=== PATIENT | female | born 2000 | race Caucasian/White ===

== ENCOUNTER 2021-05-10 09:53 | Outpatient (CLI) | payer SELFPAY ==
--- NOTE | ~2021-05-10 | US_ITS ---
EXAMINATION: US OB <= 14 weeks fetus DATE: 05/10/2021 10:52 INDICATION: Supervision of normal first trimester TECHNIQUE: Real-time pelvic transabdominal and transvaginal ultrasound was performed. COMPARISON: None. FINDINGS: The uterus measures 8.3 x 6.3 x 7.0 cm. There is an intrauterine gestational sac. A yolk s ac is identified. heart motion is identified measuring 173 beats per minute (bpm) by M-mode Dop pler. The crown rump length measures 2.0 , which correlates with an estimated gestational age o f 8 weeks and 4 day(s) (+/-) 5 day(s). The left ovary is not visualized however no left adnexal abnormality is seen. The right ovary measure s 3.3 x 2.1 x 2.7 cm. There is normal vascular flow in the right ovary. There is no free fluid in the pelvis. IMPRESSION: 1. Live intrauterine with an estimated gestational age of 8 weeks and 4 day(s) (+/-) 5 day( s) and an estimated delivery date of 12/16/2021. Reviewed, dictated and finalized at location A. IMPRESSION: 1. Live intrauterine with an estimated gestational age of 8 weeks and 4 day(s) (+/-) 5 day(s) and an estimated delivery date of 12/16/2021.
== END 2021-05-10 09:54 | disposition home or self-care (01) ==
LOC: ANHIMG 10:00
PROVIDERS: Visit Provider Physician Assistant
DX: Z34.91 Encounter for supervision of normal pregnancy, unspecified, first trimester (principal); Z3A.08 8 weeks gestation of pregnancy
CPT/HCPCS: 76801

== ENCOUNTER 2021-06-12 19:36 | Emergency (ER) | payer MEDICAID, SELFPAY ==
[2021-06-12 19:48] VITALS: BP 113/67; PULSE 92; RESP 18; TEMP 36.5; O2SAT 100
--- NOTE | 2021-06-12 22:45 | ED.URI ---
HPI - URI/Sore Throat General Chief Complaint: Upper Respiratory Infection Stated Complaint: congestion, difficulty swallowing Time Seen by Provider: 06/12/21 22:22 Source: patient Mode of arrival: ambulatory Limitations: no limitations History of Present Illness HPI Narrative: Patient is a 20-year-old female complaining of her nose being stopped up and unable to breathe through her nose accompanied by runny nose and sore throat that started this morning. Patient denies any chest pain, shortness of breath, abdominal pain, nausea, vomiting, fever or chills. Related Data Allergies Allergy/AdvReac Type Severity Reaction Status Date / Time codeine Allergy Hives Verified 06/12/21 19:51 DIPHENHYDRAMINE HCL Allergy Mild Anaphylaxis Uncoded 06/12/21 19:51 Review of Systems Review of Systems: All systems reviewed & are unremarkable except as noted in HPI and below Constitutional: Constitutional: Reports as per HPI PMFSH Comments Past medical history: None Family history: Negative for hypertension or diabetes Social history: Non-smoker no EtOH or drug use Exam Const: General: healthy appearing, no acute distress and alert Orientation/consciousness: patient oriented x3 HENMT: Head: normal to inspection Other: Erythematous, swollen, boggy nasal turbinates. Clear nasal discharge. Oropharynx slightly erythematous no significant swelling Neck: Neck: normal visual inspection Resp: Effort & Inspection: normal respiratory effort Skin: General skin exam: normal color Rashes: no rashes Neuro: General: patient oriented x3, moves all extremities and no meningeal signs Extrem: General: normal to inspection Psych: Mental Status: mental status grossly normal Course Vital Signs Vital signs: Vital Signs Temperature 36.5 C 06/12/21 19:48 Pulse Rate 92 06/12/21 19:48 Respiratory Rate 18 06/12/21 19:48 Blood Pressure 113/67 06/12/21 19:48 Pulse Oximetry 100 06/12/21 19:48 Temperature 36.5 C 06/12/21 19:48 Pulse Rate 92 06/12/21 19:48 Respiratory Rate 18 06/12/21 19:48 Blood Pressure 113/67 06/12/21 19:48 Pulse Oximetry 100 06/12/21 19:48 Discharge Plan Discharge Clinical Impression: Upper respiratory infection Qualifiers: URI type: unspecified viral URI Qualified Code(s): J06.9 - Acute upper respiratory infection, unspecified Sinusitis Qualifiers: Sinusitis location: unspecified location Chronicity: acute Recurrence: non-recurrent Qualified Code(s): J01.90 - Acute sinusitis, unspecified Patient Disposition: Home, Self-Care Condition: Improved Instructions: Sinusitis (ED), Upper Respiratory Infection (ED) Follow-up/Referrals: PHYSICIAN,VISITOR SERVICES INFORMATION ASSISTANT [Primary Care Provider] - Stand Alone Forms: Work/School Release IP Time of Disposition: 22:49
== END 2021-06-12 23:04 | disposition home or self-care (01) ==
PROVIDERS: Emergency Provider Emergency Medicine
DX: J06.9 Acute upper respiratory infection, unspecified (principal); J01.90 Acute sinusitis, unspecified
CPT/HCPCS: 99281

== ENCOUNTER 2021-07-04 13:14 | Outpatient (RCR) | payer OTHER, SELFPAY ==
--- NOTE | 2021-07-04 13:50 | PC.NURSE ---
1327-'s office called, informed pt came in for DFM at 16 weeks gestation. Dopplered fht's at 157, order received to send pt home.
== END 2021-09-28 20:51 | disposition home or self-care (01) ==
LOC: ANHOBOP 13:14
PROVIDERS: Visit Provider Obstetrics & Gynecology
DX: O36.8390 Maternal care for abnormalities of the fetal heart rate or rhythm, unspecified trimester, not applicable or unspecified (principal); Z3A.00 Weeks of gestation of pregnancy not specified
CPT/HCPCS: 99199; A9270

== ENCOUNTER 2021-07-19 11:25 | Observation (INO) | payer OTHER, SELFPAY ==
[2021-07-19] VITALS (14 sets, daily range): BP systolic 100–133; BP diastolic 64–85; PULSE 95–110; RESP 14–26; TEMP 36–36.3; O2SAT 97–99; BMI 31.3
--- NOTE | ~2021-07-19 | US_ITS ---
EXAMINATION: US OB limited DATE: 07/20/2021 08:39 INDICATION: COVID during second trimester of TECHNIQUE: Real-time ultrasound of the pelvis was performed. The interpreting radiologist was not pre sent for the study. COMPARISON: 05/10/2021 FINDINGS: There is a single living fetus in vertex presentation. The normal placenta is posterior. No evident subchorionic hematoma. heart rate is 145 beats per minute (bpm). The amniotic fluid volume is s ubjectively normal. IMPRESSION: 1. Single living fetus in vertex presentation with heart rate of 145 bpm. 2. Normal posterior placenta and subjectively normal amniotic fluid volume. Reviewed, dictated and finalized at location A. US FRUIT COLORER
--- NOTE | ~2021-07-19 | XR_ITS ---
EXAMINATION: XR chest 1V portable INDICATION: Productive cough TECHNIQUE: Portable AP chest at 1227 hours COMPARISON: None available FINDINGS: There are patchy opacities of the lung bases and perihilar regions. There is no pleural eff usion or pneumothorax. The cardiomediastinal silhouette is normal. IMPRESSION: 1. Patchy bibasilar and bilateral perihilar opacities, likely pneumonia. Reviewed, dictated and finalized at location A. P MACHINE OPERATOR
--- NOTE | 2021-07-19 11:41 | ECG_ITS ---
Measurements Intervals [place] Rate: 96 P: 24 FL: 118 QRS: 42 QRSD: 77 T: 29 QT: 331 QTc: 419 Interpretive Statements SINUS RHYTHM WITH SHORT FL INTERVAL BASELINE ARTIFACT- I, II, III, AVR, AVF BORDERLINE ECG Electronically Signed On 07-19-2021 15:03:47 COMPRESSOR OPERATOR PORTABLE by Marlon Golden D.O.
--- NOTE | 2021-07-19 12:15 | ED.SOB ---
HPI - SOB/Dyspnea General Chief Complaint: Shortness of Breath/Dyspnea Stated Complaint: wheezing, sob Time Seen by Provider: 07/19/21 12:02 Source: RN notes reviewed History of Present Illness HPI Narrative: Patient presents emergency department from home for shortness of breath. Patient states she has had a cough for the past week has been productive of yellow sputum she states that she has been feeling more short of breath over the past 1 week with wheezing noted she states that sometimes her getting a coughing spell so hard that will cause her to vomit at the end of them she also states that she has pain with coughing and deep inspiration in the midsternal chest she denies any fevers or chills abdominal pain diarrhea or any other symptoms states she has not had a Covid vaccination patient is currently 19 weeks she had been being followed by Dr. Patterson but is no longer seeing Dr. Patterson supposed be seeing a new [facility] in [place] but is unsure of name and does not have an appointment made yet she denies any abdominal pain or vaginal bleeding Related Data Home Medications Medication Instructions Recorded Confirmed No Home Medications 07/19/21 07/19/21 Allergies Allergy/AdvReac Type Severity Reaction Status Date / Time codeine Allergy Hives Verified 07/19/21 11:44 DIPHENHYDRAMINE HCL Allergy Mild Anaphylaxis Uncoded 06/12/21 19:51 Review of Systems Review of Systems: Gen.: Denies fevers or chills Eyes: Denies eye pain or visual change ENT: Denies congestion Respiratory: See HPI CV: Reports midsternal chest pain with coughing and deep inspiration GI: Denies abdominal pain nausea, diarrhea. Reports posttussive emesis denies burning, urgency, frequency or hematuria Musculoskeletal: Denies back pain or muscle pain Neuro: Denies numbness, tingling, weakness or focal weakness Skin: Denies rash Except as documented, all other systems reviewed and negative [facility] Past Medical History Medical History (Updated 07/19/21 @ 14:34 by Sriram Moctezuma DO) Patient denies significant medical history Social History Social History (Updated 07/19/21 @ 12:16 by Sriram Moctezuma DO) Smoking status: Current every day smoker Exam Narrative: APPEARANCE: No acute distress, nontoxic, resting in bed EYES: EOMI HEENT: Normocephalic, atraumatic, OMM RESPIRATORY: No respiratory distress wheezing throughout the bilateral lung jesus no rhonchi or rales CARDIOVASCULAR: Regular rate and rhythm without murmurs rubs or gallops. ABDOMINAL: Soft, nontender, nondistended, no rebound or guarding MUSCULOSKELETAl: Moves all extremities. No clubbing, cyanosis or edema. NEURO: Awake and alert. Following commands, speech normal, no focal deficits SKIN:: Warm, dry. No rashes lesions or abrasions PSYCHIATRIC: Normal affect/mood, Course Course Emergency Course: We will records patient with ultrasound in April showing IUP Breathing treatments in ED repeat lung exam shows continued wheezing throughout bilateral lung jesus Called and discussed with DAYSI Hwang for Dr Nunes presentation work-up agrees with admission at this time with consult [facility] Called discussed Dr. Villarreal for [facility] agrees with starting patient on Rocephin and Zithromax request a.m. ultrasound be obtained Discussed with patient and family results of workup and diagnosis. Discussed need for admission. Patient and family understand and agree to current treatment plan Vital Signs Vital signs: Vital Signs Temperature 97.2 F L 07/19/21 11:31 Pulse Rate 98 07/19/21 11:31 Respiratory Rate 16 07/19/21 11:31 Blood Pressure 130/76 07/19/21 11:31 Pulse Oximetry 99 07/19/21 11:31 Temperature 97.2 F L 07/19/21 11:31 Pulse Rate 98 07/19/21 13:19 Respiratory Rate 14 07/19/21 13:19 Blood Pressure 100/85 07/19/21 12:45 Pulse Oximetry 99 07/19/21 12:00 MDM - SOB/Dyspnea Lab Data Result diagrams: 07/19/21 13:14
[2021-07-19] MEDS: IPRATROPIUM BR 0.02% INH SOLN 0.5 MG/2.5 ML VIAL INHALATION ×2 (12:21→13:09)
[2021-07-19] MEDS: ALBUTEROL SULFATE NEB 2.5 MG/0.5 ML INH 5 MG INHALATION ×2 (12:22→13:09)
[2021-07-19] MEDS: predniSONE 20 MG TABLET 60 MG PO (12:35)
[2021-07-19 13:23] LABS: Basophils Absolute Auto 0.1 K/mm3 (0.0-0.1); Basophils Percent Auto 0.5 % (0.2-1.2); Eosinophils Absolute Auto 0.7 K/mm3 (0-0.3); Eosinophils Percent Auto 5.8 % (0-4.4); Hematocrit 37.1 % (37.0-47.0); Hemoglobin 12.9 g/dL (12.0-15.0); Immature Granulocyte Absolute 0.08 K/mm3 (0.00-0.031); Immature Granulocyte Percent A 0.7 % (0-0.5); Lymphocytes Absolute Auto 2.34 K/mm3 (0.9-3.2); Lymphocytes Percent Auto 19.5 % (18.3-44.2); Mean Corpuscular HGB Conc 34.8 g/dl (32-36); Mean Corpuscular Hemoglobin 29.2 pg (26-34); Mean Corpuscular Volume 83.9 fl (80-100); Mean Platelet Volume 8.4 fl (7.4-10.4); Monocytes Absolute Auto 0.6 K/mm3 (0.1-0.6); Monocytes Percent Auto 5.2 % (2.6-8.5); Neutrophils Absolute Auto 8.2 K/mm3 (1.3-6.7); Neutrophils Percent Auto 68.3 % (45.5-73.1); Platelet Count Result 235 k/mm3 (150-375); Red Blood Count 4.42 M/mm3 (4.2-5.4); Red Cell Distribution Width 13.5 % (11.5-14.5)
[2021-07-19 13:35] LABS: Alanine Aminotransferase 71 U/L (4-35); Albumin Level 4.7 g/dL (3.5-5.1); Alkaline Phosphatase 102 U/L (38-126); Anion Gap 11 mmol/L (8-16); Aspartate Amino Transferase 40 U/L (14-36); Bilirubin,Total 0.4 mg/dL (0.2-1.3); Blood Urea Nitrogen 9 mg/dL (7-17); CRP 1.9 mg/dL (<1.0); Calcium 9.6 mg/dL (8.4-10.2); Carbon Dioxide 21 mmol/L (22-30); Chloride 100 mmol/L (98-107); D Dimer 0.43 ug/mL (<0.48); Estimated Glomerular Filt Rate > 60; Glucose 90 mg/dL (65-110); Lactate Dehydrogenase 455 U/L (313-618); Potassium 3.7 mmol/L (3.4-5.0); Sodium 132 mmol/L (137-145)
[2021-07-19 13:44] LABS: Lactic Acid Reflex 0.9 mmol/L (0.7-2.1)
--- NOTE | 2021-07-19 15:59 | ADMGEN ---
This patient, Stephanie Wheatley, was admitted to [facility] Surg Room 313-01 at 1550. Patient/family oriented to hospital policies and general routines including ID bracelet, bed and alarms, visiting hours, pain management, procedures, bathroom and other care routines, personal items, smoking policy, room service/diet, and visiting hours. Information on how to activate the Rapid Response Team has been discussed. Patient/Family are encouraged to report perceived risks to care and to ask questions if they do not understand what they are told or what they should do.
--- NOTE | 2021-07-19 17:30 | PM.IMHP ---
H&P: HPI History of Present Illness Date/Time: 07/19/21 17:30 Chief Complaint: Shortness of breath and cough. Narrative: This is a pleasant 21-year-old female who is approximately 19 weeks with no significant medical history presented to the emergency department earlier today via private vehicle for evaluation of shortness of breath and cough. Nearly 1 month ago she was concerned that she had COVID with decrease in taste and smell as well as sinus congestion and generalized malaise. 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 Approximately 2 weeks thereafter she developed a cough which has been productive of clear but at times green sputum. Over the past 1 week she has felt increasingly worse with chest congestion, wheezing at nighttime, dyspnea on exertion, nausea, and post-tussive emesis. Chest x-ray done today shows patchy bibasilar and bilateral perihilar opacities felt to be related to pneumonia and she is being admitted in this setting. At the time my evaluation she reports feeling a lot better after receiving a nebulizer and p.o. prednisone in the emergency department. She is not been vaccinated for COVID. She works at a local [email or web address] and is exposed to many people over the course of her day however she is not certain that she has had any COVID contacts. Review of Systems Review of Systems: Twelve systems were reviewed. No fever, chills, or sweats. No significant headache. She denies chest and pleuritic pain. No concerns for aspiration. No history of asthma. She denies edema. No diarrhea. No history of venous thromboembolism. Except as documented, all other systems were reviewed and are negative. [facility] Past Medical History Medical History (Updated 07/19/21 @ 23:02 by Eri Palm PA-C) Anxiety Attention deficit hyperactivity disorder Depression Gastroesophageal reflux disease Patient denies significant medical history Surgical History Surgical History (Updated 07/19/21 @ 23:02 by Eri Palm PA-C) No history of previous surgery Family History Family History Grandparent Diabetes mellitus Mother Bronchitis Social History Social History (Updated 07/19/21 @ 23:03 by rEi Palm PA-C) Social History: Surrogate decision maker: Hannah Wheatley, mother. Code status: Full code. Years smoked: 5 Smoking status: Current every day smoker Tobacco type: e-cigarettes/vaping Alcohol intake: never Substance use: never Substance use type: does not use Additional living arrangements comments: Currently living with her boyfriend in [place]. Additional occupation/education comments: Works at a [employer] care concerns: No Meds Home Medications and Allergies Home Medications Medication Instructions Recorded Confirmed Type folic acid 2 mg PO BID 07/19/21 07/19/21 History no.144-folic acid 2 tablet PO DAILY 07/19/21 07/19/21 History [] progesterone micronized 200 mg PO BID 07/19/21 07/19/21 History Allergies Allergy/AdvReac Type Severity Reaction Status Date / Time diphenhydramine Allergy Mild Anaphylaxis Verified 07/19/21 18:37 codeine Allergy Hives Verified 07/19/21 11:44 Vital Signs Vital Signs - 24 hr 07/19/21 11:31 07/19/21 11:45 07/19/21 12:00 Temperature 97.2 F L Pulse Rate 98 101 H 98 Respiratory Rate 16 16 17 Blood Pressure 130/76 112/78 117/76 Pulse Oximetry 99 98 99 07/19/21 12:22 07/19/21 12:28 07/19/21 12:45 Temperature Pulse Rate 101 H 102 H 106 H Respiratory Rate 20 20 19 Blood Pressure 100/85 Pulse Oximetry 07/19/21 13:09 07/19/21 13:19 Temperature Pulse Rate 95 98 Respiratory Rate 15 14 Blood Pressure Pulse Oximetry Exam Narrative: General: Well-developed female sitting up in bed no distress. S
--- NOTE | 2021-07-19 18:00 | WPDCN ---
Assessment and Plan Assessment and plan (1) Community acquired pneumonia: Code(s): J18.9 - Pneumonia, unspecified organism Status: Acute Assessment and Plan: Management per hospitalist (2) : Code(s): Z34.90 - Encounter for supervision of normal , unspecified, unspecified trimester Status: Acute Assessment and Plan: + heartbeat via doppler today. Check ultrasound tomorrow since most recent was around 8 weeks per patient report. OB available for any obstetric questions HPI Data of Consult Date/Time: 07/19/21 18:00 Requesting Physician: Wayne Nunes MD Primary Care Provider: ASSEMBLY LEADER PHYSICIAN Consult Narrative Narrative: Stephanie Wheatley is a 21 year old female who is 19+ weeks who came in for respiratory complaints and is admitted for pneumonia. No obstetric complaints or known problems this PMFSH Past Medical History Medical History (Updated 07/19/21 @ 14:34 by Sriram Moctezuma DO) Patient denies significant medical history Family History Family History (Updated 07/19/21 @ 16:02 by Nan Trevizo RN) Grandparent Diabetes mellitus Mother Bronchitis Social History Social History (Updated 07/19/21 @ 12:16 by Sriram Moctezuma DO) Years smoked: 5 Smoking status: Current every day smoker Tobacco type: e-cigarettes/vaping Alcohol intake: never Substance use: never Substance use type: does not use Spiritual care concerns: No Meds Home Medications and Allergies Home Medications Medication Instructions Recorded Confirmed Type folic acid 2 mg PO BID 07/19/21 07/19/21 History no.144-folic acid 2 tablet PO DAILY 07/19/21 07/19/21 History [] progesterone micronized 200 mg PO BID 07/19/21 07/19/21 History Allergies Allergy/AdvReac Type Severity Reaction Status Date / Time codeine Allergy Hives Verified 07/19/21 11:44 DIPHENHYDRAMINE HCL Allergy Mild Anaphylaxis Uncoded 06/12/21 19:51 Vital Signs Vital Signs - 24 hr 07/19/21 11:31 07/19/21 11:45 07/19/21 12:00 Temperature 36.2 C L Pulse Rate 98 101 H 98 Respiratory Rate 16 16 17 Blood Pressure 130/76 112/78 117/76 Pulse Oximetry 99 98 99 07/19/21 12:22 07/19/21 12:28 07/19/21 12:45 Temperature Pulse Rate 101 H 102 H 106 H Respiratory Rate 20 20 19 Blood Pressure 100/85 Pulse Oximetry 07/19/21 13:09 07/19/21 13:19 07/19/21 14:15 Temperature Pulse Rate 95 98 107 H Respiratory Rate 15 14 26 H Blood Pressure 110/77 Pulse Oximetry 07/19/21 14:30 07/19/21 15:35 07/19/21 17:10 Temperature Pulse Rate 106 H 110 H Respiratory Rate 15 20 Blood Pressure 107/65 108/72 Pulse Oximetry 97 97 Results Labs CBC & Chem 7: 07/19/21 13:14 07/19/21 13:14 Labs: Short CBC 07/19/21 Range/Units 13:14 WBC 12.0 H (4.5-10.0) K/mm3 Hgb 12.9 (12.0-15.0) g/dL Hct 37.1 (37.0-47.0) % Plt Count 235 (150-375) k/mm3 [facility] 07/19/21 13:14 Sodium 132 L Potassium 3.7 Chloride 100 Carbon Dioxide 21 L BUN 9 Creatinine 0.50 L Glucose 90 Calcium 9.6 Liver Function 07/19/21 Range/Units 13:14 Total Bilirubin 0.4 (0.2-1.3) mg/dL AST 40 H (14-36) U/L ALT 71 H (4-35) U/L Alkaline Phosphatase 102 (38-126) U/L Albumin 4.7 (3.5-5.1) g/dL
[2021-07-20] VITALS: BP 102/50; PULSE 87; RESP 16; TEMP 36.1; O2SAT 96
[2021-07-20 04:00] VITALS: BP 103/58; PULSE 80; RESP 18; TEMP 36.1; O2SAT 98
[2021-07-20 07:36] LABS: Basophils Percent Auto 0.3 % (0.2-1.2); Eosinophils Absolute Auto 0.1 K/mm3 (0-0.3); Eosinophils Percent Auto 1.1 % (0-4.4); Hematocrit 29.3 % (37.0-47.0); Hemoglobin 10.1 g/dL (12.0-15.0); Immature Granulocyte Absolute 0.13 K/mm3 (0.00-0.031); Lymphocytes Absolute Auto 2.42 K/mm3 (0.9-3.2); Lymphocytes Percent Auto 19.1 % (18.3-44.2); Mean Corpuscular HGB Conc 34.5 g/dl (32-36); Mean Corpuscular Hemoglobin 28.5 pg (26-34); Mean Corpuscular Volume 82.8 fl (80-100); Mean Platelet Volume 8.4 fl (7.4-10.4); Monocytes Absolute Auto 0.7 K/mm3 (0.1-0.6); Monocytes Percent Auto 5.1 % (2.6-8.5); Neutrophils Absolute Auto 9.3 K/mm3 (1.3-6.7); Neutrophils Percent Auto 73.4 % (45.5-73.1); Platelet Count Result 221 k/mm3 (150-375); Red Blood Count 3.54 M/mm3 (4.2-5.4); Red Cell Distribution Width 13.5 % (11.5-14.5); White Blood Count 12.7 K/mm3 (4.5-10.0)
[2021-07-20 07:50] LABS: Alanine Aminotransferase 47 U/L (4-35); Albumin Level 3.8 g/dL (3.5-5.1); Alkaline Phosphatase 79 U/L (38-126); Anion Gap 7 mmol/L (8-16); Aspartate Amino Transferase 30 U/L (14-36); Bilirubin,Total 0.3 mg/dL (0.2-1.3); Blood Urea Nitrogen 8 mg/dL (7-17); CRP 2.9 mg/dL (<1.0); Calcium 8.9 mg/dL (8.4-10.2); Carbon Dioxide 20 mmol/L (22-30); Chloride 105 mmol/L (98-107); Estimated Glomerular Filt Rate > 60; Glucose 85 mg/dL (65-110); Lactate Dehydrogenase 332 U/L (313-618); Magnesium 1.8 mg/dL (1.6-2.3); Potassium 3.6 mmol/L (3.4-5.0); Sodium 132 mmol/L (137-145)
[2021-07-20 08:00] VITALS: BP 116/62; PULSE 92; RESP 18; TEMP 36.6; O2SAT 100; O2SAT 97
--- NOTE | 2021-07-20 08:05 | PM.IMPN ---
Subjective Date/time seen: 07/20/21 08:05 Objective Data Vital Signs Vital Signs: Vital Signs - 24 hr 07/19/21 11:31 07/19/21 11:45 07/19/21 12:00 Temperature 97.2 F L Pulse Rate 98 101 H 98 Respiratory Rate 16 16 17 Blood Pressure 130/76 112/78 117/76 Pulse Oximetry 99 98 99 07/19/21 12:22 07/19/21 12:28 07/19/21 12:45 Temperature Pulse Rate 101 H 102 H 106 H Respiratory Rate 20 20 19 Blood Pressure 100/85 Pulse Oximetry 07/19/21 13:09 07/19/21 13:19 07/19/21 14:15 Temperature Pulse Rate 95 98 107 H Respiratory Rate 15 14 26 H Blood Pressure 110/77 Pulse Oximetry 07/19/21 14:30 07/19/21 15:35 07/19/21 16:00 Temperature 97.4 F L Pulse Rate 106 H 110 H 109 H Respiratory Rate 15 20 16 Blood Pressure 107/65 108/72 133/76 Pulse Oximetry 97 97 07/19/21 17:10 07/19/21 20:00 07/20/21 00:00 Temperature 96.8 F L 97.0 F L Pulse Rate 107 H 87 Respiratory Rate 18 16 Blood Pressure 115/64 102/50 L Pulse Oximetry 97 97 96 07/20/21 04:00 Temperature 97.0 F L Pulse Rate 80 Respiratory Rate 18 Blood Pressure 103/58 L Pulse Oximetry 98 Intake/Output Intake/Output: Intake & Output 07/17/21 07/18/21 07/19/21 07/20/21 23:59 23:59 23:59 23:59 Intake Total 640 Balance 640 Meds/Results Medications: Active Medications Generic Name Dose Route Start Last Admin Trade Name Freq PRN Reason Stop Dose Admin Albuterol 2 puff 07/19/21 23:07 Albuterol Sulfate (*Sp) Aerosol 1 Puff INHALATION QIDRT PRN Shortness Of Breath Folic Acid 2 mg 07/20/21 09:00 Folic Acid 1 Mg Tablet PO BID [facility] Ceftriaxone Sodium/Dextrose 1 gm in 50 mls @ 100 mls/hr 07/20/21 14:00 Rocephin 1 Gm/D5w 50 Ml IVPB Q24H [facility] Azithromycin 500 mg in 250 mls @ 250 mls/hr 07/19/21 18:00 07/19/21 21:51 Zithromax IVPB Infused Q24H [facility] Infusion Miscellaneous Information 0 each 07/20/21 00:01 Progesterone Is Nonformulary - Can Patient Use From Home? XX 08/19/21 00:00 CLARIFY [facility] Non-Formulary Medication 200 mg 07/20/21 09:00 Progesterone Micronized PO 08/19/21 08:59 BID [facility] Vit/Calcium/Iron/Folic Ac 2 tab 07/20/21 09:00 Multivit/Min/Pren/Fol Ac/Iron Tablet PO DAILY [facility] Radiology Results: ITS Impressions Chest X-Ray 07/19/21 12:45 IMPRESSION: 1. Patchy bibasilar and bilateral perihilar opacities, likely pneumonia. Labs Labs: Laboratory Results - last 24 hr 07/19/21 07/19/21 07/19/21 13:14 13:14 13:14 WBC 12.0 H RBC 4.42 Hgb 12.9 Hct 37.1 MCV 83.9 MCH 29.2 MCHC 34.8 RDW 13.5 Plt Count 235 MPV 8.4 Immature Gran % (Auto) 0.7 H Neut % (Auto) 68.3 Lymph % (Auto) 19.5 Cassia % (Auto) 5.2 Eos % (Auto) 5.8 H Baso % (Auto) 0.5 Lymph # (Auto) 2.34 Cassia # (Auto) 0.6 Eos # (Auto) 0.7 H Baso # (Auto) 0.1 Abs Immat Gran (auto) 0.08 H Absolute Neuts (auto) 8.2 H Absolute Nucleated RBC 0.0 Nucleated RBC % 0.0 D-Dimer 0.43 Sodium 132 L Potassium 3.7 Chloride 100 Carbon Dioxide 21 L Anion Gap 11 BUN 9 Creatinine 0.50 L Estim Creat Clear Calc Not Reportable Estimated GFR > 60 Glucose 90 Lactic Acid Calcium 9.6 Magnesium Total Bilirubin 0.4 AST 40 H ALT 71 H Alkaline Phosphatase 102 Lactate Dehydrogenase 455 C-Reactive Protein 1.9 H Total Protein 8.0 Albumin 4.7 07/19/21 07/20/21 07/20/21 13:14 07:29 07:29 WBC 12.7 H RBC 3.54 L Hgb 10.1 L Hct 29.3 L MCV 82.8 MCH 28.5 MCHC 34.5 RDW 13.5 Plt Count 221 MPV 8.4 Immature Gran % (Auto) 1.0 H Neut % (Auto) 73.4 H Lymph % (Auto) 19.1 Cassia % (Auto) 5.1 Eos % (Auto) 1.1 Baso % (Auto) 0.3 Lymph # (Auto) 2.42 Cassia # (Auto) 0.7 H Eos # (Auto) 0.1 Baso # (Auto) 0.0 Abs Immat Gran (auto) 0.13 H Absolute Neuts (auto) 9.3 H Ab
[2021-07-20] MEDS: MULTIVIT/MIN/PREN/FOL AC/IRON TABLET 2 TAB PO (09:48)
[2021-07-20] MEDS: FOLIC ACID 1 MG TABLET 2 MG PO (09:48)
[2021-07-20] MEDS: ALBUTEROL SULFATE (*SP) AEROSOL 1 PUFF 2 PUFF INHALATION (09:55)
[2021-07-20 11:49] VITALS: BP 112/46; PULSE 99; RESP 20; TEMP 36.6; O2SAT 100
[2021-07-20 16:00] VITALS: BP 98/62; PULSE 98; RESP 18; TEMP 35.9; O2SAT 99
[2021-07-20 17:10] LABS: SARS-CoV-2 RNA PCR Negative
--- NOTE | 2021-07-20 17:43 | PM.DS ---
DS: Admitting Diagnosis Discharge Date 07/20/2021 Admitting Diagnosis Shortness of breath DS: Discharge Diagnosis Discharge Diagnosis (1) Community acquired pneumonia: Code(s): J18.9 - Pneumonia, unspecified organism Status: Acute Assessment and Plan: CXR notes patchy opacities of the lung bases and perihilar regions. Leukocytosis 12.1. BCX with no growth for 24 hours and patient endorses feeling much better with better breathing. Denies hx of asthma. Ceftriaxone and azithromycin started in ED. -Amoxicillin 875 BID x 5 and azithromycin 500 mg daily x 3 -Albuterol inhaler for PRN use (2) Suspected 2019-nCoV infection: Code(s): Z20.822 - Contact with and (suspected) exposure to COVID-19 Status: Acute Assessment and Plan: Given symptoms and appearance of CXR patient tested for COVID 19. COVID 19 PCR was negative. (3) : Code(s): Z34.90 - Encounter for supervision of normal , unspecified, unspecified trimester Status: Acute Assessment and Plan: 19 weeks on progesterone. US single live fetus vertex. (4) Acute bronchospasm: Code(s): J98.01 - Acute bronchospasm Status: Acute Assessment and Plan: Hx of brochitis in the past and denies hx of asthma. Likely due to penumonia. -albuterol 2 puffs q4h as needed (5) Leukocytosis: Code(s): D72.829 - Elevated white blood cell count, unspecified Status: Acute Assessment and Plan: Remained at 12 during admission. Liley due to pneumonia noted on CXR. -Amoxicillin 875 mg BID x 5 days and azithromycin 500 mg daily x 3 days DS: Summary Hospital Course Hospital Course: Patient presented to the ED with shortness of breath. CXR showed pneumonia. Patient started on antibiotics in the ED. Patient was never febrile. OB was consulted and ordered an OB ultrasound. Ultrasound showed single live born fetus. Patient was feeling much better the next day. Blood cultures showed no growth. COVID 19 PCR was negative. The patient was discharged with amoxicillin, azithromycin and albuterol inhaler for her brochospasms. Time Spent with Patient Time attestation: Total time spent providing and/or coordinating discharge services: 30 Exam Narrative: GENERAL: NAD, cooperative HEENT: Normocephalic, atraumatic, anicteric NECK: Supple CV: Normal S1, S2, RRR, No MRG RESP: CTAB, Normal work of breathing. Abdomen: Soft, non-tender, non-distended, +BS, gravid EXTREMITIES: Warm and well perfused, no clubbing, cyanosis. SKIN: warm, dry and intact. DS: Data Data Completed and Pending Labs on day of discharge: Labs from last 24 hours 07/20/21 07/20/21 07/20/21 07:29 07:29 07:29 WBC 12.7 H RBC 3.54 L Hgb 10.1 L Hct 29.3 L MCV 82.8 MCH 28.5 MCHC 34.5 RDW 13.5 Plt Count 221 MPV 8.4 Immature Gran % (Auto) 1.0 H Neut % (Auto) 73.4 H Lymph % (Auto) 19.1 [place] % (Auto) 5.1 Eos % (Auto) 1.1 Baso % (Auto) 0.3 Lymph # (Auto) 2.42 [place] # (Auto) 0.7 H Eos # (Auto) 0.1 Baso # (Auto) 0.0 Abs Immat Gran (auto) 0.13 H Absolute Neuts (auto) 9.3 H Absolute Nucleated RBC 0.0 Nucleated RBC % 0.0 Sodium 132 L Potassium 3.6 Chloride 105 Carbon Dioxide 20 L Anion Gap 7 L BUN 8 Creatinine 0.40 L Estim Creat Clear Calc Not Reportable Estimated GFR > 60 Glucose 85 Calcium 8.9 Magnesium 1.8 Ferritin 36.20 Total Bilirubin 0.3 AST 30 ALT 47 H Alkaline Phosphatase 79 Lactate Dehydrogenase 332 C-Reactive Protein 2.9 H Total Protein 7.0 Albumin 3.8 SARS-CoV-2 RNA (RT-PCR) 07/19/21 13:26 WBC RBC Hgb Hct MCV MCH MCHC RDW Plt Count MPV Immature Gran % (Auto) Neut % (Auto) Lymph % (Auto) [place] % (Auto) Eos % (Auto) Baso % (Auto) Lymph # (Auto) [place] # (Auto) Eos # (Auto) Baso # (Auto) Abs Immat Gran (auto)
== END 2021-07-20 20:25 | disposition home or self-care (01) ==
LOC: ANHED 14:34 → ANH3MEDSUR 17:06
PROVIDERS: Physician Assistant; Admitting Provider Internal Medicine; Emergency Provider Emergency Medicine; Visit Provider Family Medicine
DX: O99.512 Diseases of the respiratory system complicating pregnancy, second trimester (principal); J18.9 Pneumonia, unspecified organism; J98.01 Acute bronchospasm; F17.210 Nicotine dependence, cigarettes, uncomplicated; D72.829 Elevated white blood cell count, unspecified; R06.02 Shortness of breath; Z3A.19 19 weeks gestation of pregnancy; Z20.822 Contact with and (suspected) exposure to COVID-19
CPT/HCPCS: 36415; 71045; 76815; 80053; 82728; 83605; 83615; 83735; 85025; 85380; 86140; 87040; 93005; 94640; 96365; 96366; 96367; 99285; A9270; C9803; G0378; G0379; J0456; J0696; J7512; U0003; U0005

== ENCOUNTER 2021-07-23 13:48 | Outpatient (CLI) | payer OTHER, SELFPAY ==
--- NOTE | ~2021-07-23 | US_ITS ---
EXAMINATION: US OB follow up EXAM DATE: 07/23/2021 15:05 INDICATION: Routine care. 2nd trimester. TECHNIQUE: Pelvic obstetrical transabdominal sonogram was performed by a technologist. There are mu ltiple grayscale and Doppler images available for interpretation. Comparison is made to prior examina tion from 07/20/2021. FINDINGS: There is a single fetus identified in breech presentation with a heart rate of 146 beats pe r minute. The placenta is located in the posterior position. There is no sonographic evidence of ret roplacental hemorrhage identified. There is subjectively expected amount of amniotic fluid. BIOMETRIC DATA: Biparietal diameter (BPD): 4.6 cm ----------------> 19 weeks 5 days. Head circumference (HC): 17.1 cm ----------------> 19 weeks 5 days. Abdominal circumference (AC): 14.8 cm ----------> 20 weeks 1 day. Femur length (FL): 2.7 cm --------------------------> 18 weeks 2 days. These measurements are concordant. HC/AC ratio is 1.15 (The 5th -- 95th percentile range is 1.08-1.26. Estimated weight is 284 g +/- 43 g. This is the 55th percentile when the currently reported cl inical gestation age 19 weeks 1 day, clinical estimated date of delivery (ELLA-OPE) 12/16 is used. Feta l estimated gestational age based on measurements from this exam is 19 weeks 3 days, with an estimate d date of delivery (ELLA-AUA) 12/14. IMPRESSION: 1. Single fetus in breech presentation with heart rate 146 beats per minute. 2. Estimated weight of 284 grams, 55th percentile using the currently reported clinical gestat ion age of 19 weeks 1 day, ELLA(OPE) 12/16. Reviewed, dictated and finalized at location [facility]. [facility] IMPRESSION: 1. Single fetus in breech presentation with heart rate 146 beats per minute. 2. Estimated weight of 284 grams, 55th percentile using the currently re ported clinical gestation age of 19 weeks 1 day, ELLA(OPE) 12/16.
== END 2021-07-23 13:49 | disposition home or self-care (01) ==
LOC: ANHIMG 13:56
PROVIDERS: PCP Obstetrics & Gynecology; Visit Provider Obstetrics & Gynecology
DX: Z34.92 Encounter for supervision of normal pregnancy, unspecified, second trimester (principal); Z3A.19 19 weeks gestation of pregnancy
CPT/HCPCS: 76816

== ENCOUNTER 2021-10-21 15:55 | Observation (INO) | payer OTHER, SELFPAY ==
--- NOTE | 2021-10-21 16:27 | OBADM ---
This patient, Stephanie Wheatley, admitted to the OB room OB Post 116 for observation. Patient/family oriented to hospital policies and general routines including ID bracelet, bed and alarms, visiting hours, pain management, procedures, bathroom and other care routines, personal items, smoking policy, room service/diet, and visiting hours. Patient/Family are encouraged to report perceived risks to care and to ask questions if they do not understand what they are told or what they should do.
[2021-10-21 16:31] VITALS: BP 99/69; PULSE 102
[2021-10-21 16:45] VITALS: BP 107/58; PULSE 96
[2021-10-21 17:13] LABS: Add Urine Microscopic? YES; Appearance Urine Cloudy (Clear); Bilirubin Urine Negative (Negative); Blood Urine Negative (Negative); Color Urine Yellow (Yellow); Glucose Urine UA Negative (Negative); Ketones Urine Negative (Negative); Leukocyte Esterase Ur 1+ LEU/UL (NEGATIVE); Mucus Urine Rare /lpf; Nitrate Urine Negative (Negative); Protein Urine Negative (Negative); RBC Urine 0-2 /hpf (0-2); Specific Grav Ur 1.014 (1.001-1.035); Squamous Epithelial Cell Urine Moderate /hpf (Few); Urobilinogen Urine Negative mg/dL (<2.0)
--- NOTE | 2021-10-21 17:26 | PC.NURSE ---
Dr Chavira notified of adm c/o, reassuring fht, contractions x1, negative ROM plus and UA results. Ok to dc home.
--- NOTE | 2021-10-29 07:33 | PM.OBTRLD ---
OB - Triage/Final Diagnosis Visit Information Reason for evaluation: other (Abdominal pain) Comments/Additional reasons for admission: I have assessed the risk for this patient, Stephanie Wheatley, and determined that she would benefit from observation care. Evaluation Laboratory results: Laboratory Tests 10/21/21 16:59 Urine Color Yellow Urine Appearance Cloudy H Urine pH 6.0 Ur Specific [place] 1.014 Urine Protein Negative Urine Glucose (UA) Negative Urine Ketones Negative Ur Blood (Man) Negative Urine Nitrate Negative Urine Bilirubin Negative Urine Urobilinogen Negative Ur Leukocyte Esterase 1+ H Urine RBC 0-2 Urine WBC 4-6 H Ur Squamous Epith Cells Moderate H Urine Mucus Rare
== END 2021-10-21 17:48 | disposition home or self-care (01) ==
PROVIDERS: Admitting Provider Obstetrics & Gynecology Gynecology; Visit Provider Obstetrics & Gynecology Gynecology
DX: O26.893 Other specified pregnancy related conditions, third trimester (principal); R10.9 Unspecified abdominal pain; Z3A.32 32 weeks gestation of pregnancy
CPT/HCPCS: 81001; 84112; 87086; 87088; G0378; G0379

== ENCOUNTER 2025-06-23 13:22 | Emergency (ER) | payer SELFPAY ==
--- NOTE | ~2025-06-23 | US_ITS ---
TRANSABDOMINAL/TRANSVAGINAL OBSTETRIC SONOGRAM INDICATION: Ectopic COMPARISON: None. TECHNIQUE: Transabdominal and transvaginal ultrasound of the pelvis was performed. FINDINGS: The uterus measures 8 x 3.6 x 4.7 centimeters. Gestational sac seen. This may be due to early in however ectopic cannot be entirely excluded. The right ovary measures 3.9 x 2.2 x 1.8 cm. The left ovary measures 3.5 x 1.6 x 3 cm. The ovaries are normal in appearance. No adnexal masses are seen. No pelvic fluid or mass is seen. IMPRESSION: No intrauterine identified. Correlation with beta-hCG and follow-up with vessel scrapper helper is recommended. Reviewed, dictated and finalized at location S. IMPRESSION: No intrauterine identified. Correlation with beta-hCG and follow-up w [facility] vessel scrapper helper is recommended.
[2025-06-23 13:34] VITALS: BP 115/68; PULSE 92; RESP 18; TEMP 36.6; O2SAT 100
--- OUTSIDE RECORDS SUMMARY | 2025-06-23 14:04 | XMS_ITS | Clinical Summary ---
Author Organization [facility] [place] [address] [place] [address] Care Team Providers Care Power Lineworker Name Role Phone Marie Villalba MD Primary Care Provide r Allergies Active Allergy Reactions Criticality Noted Date Comments Diphenhydramine Swelling Medium 01/20/2014 Anaphylaxis Hydrocodone Hives Medium 01/19/2017 Medications albuterol HFA (PROVENTIL HFA,VENTOLIN HFA,PROAIR HFA) 90 mcg/actuation inhaler 2-4 PUFFS NEEDED (4-6HR) 07/02/2023 Active Active Problems Problem Noted Date Diagnosed Date Moderate persistent asthma without complication 06/12/2023 Medical History Medical History Date Comments Anxiety Family History Medical History Relation Name Comments Cancer Mother Relation Name Status Comments Mother Social History Tobacco Use Types Packs/Day Years Used Date Smoking Tobacco: Every Day Vaping Tobacco Cessation:Ready to Q uit: Not Asked; Counseling Given: Not Answered Comments:Patient states she has slowed down. Personal Safety Answer Date Recorded Getting School Help Needed Not on file 08/29 Comments Unknown Sex and Gender Information Value Date Recorded Sex Assigned at Not on file Legal Sex Female 10:45 AM CDT Gender Identity Not on file Sexual Orientation Not on file Obstetrics History Last Filed Vital Signs Vital Sign Reading Time Taken Comments Blood Pressure 114/72 09/01/2023 11:23 AM WALL COVERING CONTRACTOR Pulse 96 09/01/2023 11:23 AM WALL COVERING CONTRACTOR Temperature - - Respiratory Rate 18 09/01/2023 11:23 AM WALL COVERING CONTRACTOR Oxygen Saturation 98% 09/01/2023 11:23 AM WALL COVERING CONTRACTOR Inhaled Oxygen Concentration - - Weight 76.2 kg (168 lb) 09/01/2023 11:23 AM WALL COVERING CONTRACTOR Height 149.9 cm (4' 11) 09/01/2023 11:23 AM WALL COVERING CONTRACTOR Body Mass Index 33.93 09/01/2023 11:23 AM WALL COVERING CONTRACTOR Plan of Treatment Health Maintenance Due Date Last Done Comments Cervical Cancer Screening 1999 Depression Screening 1999 Hepatitis C Screening 1999 Regular Well Visit/Exam 18-64 2017 Influenza Vaccine (#1) 2025 , 08/22/2021, 06/15/2018, Additional history exists DTaP/Tdap/Td Vaccine (8 - Td or Tdap) 09/18/2031 09/18/2021, 12/11/2010, 04/23/2004, Additional history exists Hepatitis B Screening Completed 10/15/2000 , 04/09/2000, 01/29/2000 Varicella Vaccines Completed 12/11/2010, 07/14/2000 HPV Vaccines Completed 12/19/2011, 03/26, 12/11/2010 Pneumococcal vaccine <65 Completed 023, 07/14/2000, 02/28/2000, Additional history exists Insurance [facility] [employer] [place]TER [place] Member Subscriber Plan / Payer (Ef fective 2021-Present) Name:Sylwia Wheatley Relation to Subscriber:Self Name:Sylwia Wheatley Payer ID:[id number] (NAIC) Group ID:Not on file Type:MEDICAID RISK OTHER Address: [facility] [id number] [id number] Care Teams Power Lineworker Relationship Specialty Start Date End Date Marie Villalba MD [address] [address] [place] [address] PCP - General Family Medicine 08/29/23
--- OUTSIDE RECORDS SUMMARY | 2025-06-23 14:04 | XMS_ITS | Clinical Summary ---
Author Organization [facility] Address [address] [place] [address] Care Team Providers Care Plaque Maker Name Role Phone Shasha Freeman MD Primary Care Provider [phone] [facility],non-owned Affiliates and Associated Physician Practices is amultiple site organization consisting of ambulatory clinics and hospital sitesin [place], [place], [place] and [place]. This disclosure is being madepursuant to the Care Everywhere program and may not contain all information available regarding this patient. Last updated 18.[facility] Allergies Active Allergy Reactions Criticality Noted Date Comments Diphenhydramine 01/20/2014 Anaphylaxis Hydrocodone 01/19/2017 Medications * Be aware that medications may not be up to date on this document. Alwaysverify current medications with the patient. 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 Swelling of eye, left 01/20/2014 Assessment & Plan (01/22/2014 10:53 AM CDT): Assessment: 13 year old female with no significant PMH presenting with 10 day history of headaches and 7 day history of increased eye swelling which is progressive. CT at OSH was unremarkable and pain has been managed at home with Ibuprofen. Upon presentation to ER, MRI shows increased enhancement of several extraocular muscles bilaterally with left greater than right. Ddx includes possible myositic orbital pseudotumor given ocular muscle invovlement and pain. Thyroid ophthalmopathy can involve the extraocular muscles as well, but thyroid studies WNL. Sarcoidosis can involve orbital structures, but CXR was clear for any hilar lymphadenopathy and serum MARIA M low. Orbital cellulitis can show proptosis and erythema with swelling as well but less likely infectious etiology, especially given the lack of sinus disease. Leukemia or lymphoma can show bilateral occular involvement yet CBC is unremarkable and CXR clear for gross lymphadenopathy. 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 Will continue to monitor improvement on steroids before considering dispo. Appreciate recs regarding duration of treatment and criteria for dispo. Already has f/u next 01/26 at 3PM scheduled at [facility] with Dr. Sotomayor. Assessment & Plan (01/21/2014 5:34 PM CDT): Assessment: 13 year old female with no significant PMH presenting with 10 day history of headaches and 7 day history of increased eye swelling which is progressive. CT at OSH was unremarkable and pain has been managed at home with Ibuprofen. Upon presentation to ER, MRI shows increased enhancement of several extraocular muscles bilaterally with left greater than right. Ddx includes possible myositic orbital pseudotumor given ocular muscle invovlement and pain. Thyroid ophthalmopathy can involve the extraocular muscles as well, but thyroid studies WNL. Sarcoidosis can involve orbital structures, but CXR was clear for any hilar lymphadenopathy and serum MARIA M pending. Orbital cellulitis can show proptosis and erythema with swelling as well but less likely infectious etiology, especially given the lack of sinus disease. Leukemia or lymphoma can show bilateral occular involvement yet CBC is unremarkable and CXR clear for gross lymphadenopathy. 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 Will continue to monitor improvement on steroids before considering dispo. Assessment & Plan (01/20/2014 10:41 PM CDT): Assessment: 13 year old female with no significant PMH presenting with 10 day history of headaches and 7 day history of increased eye swelling which is progressive. CT at OSH was unremarkable and pain has been managed at home with ibuprofen. Upon presentation to ER, MRI shows increased enhancement of several extraocular muscles bilaterally with left greater than right. Ddx includes possible myositic orbital pseudotumor given occular muscle invovlement and pain. Thyroid ophthalmopathy can involve the extraocular muscles as well. Sarcoidosis can involve orbital structures. Orbital cellulitis can show proptosis and erythema with swelling as well. Leukemia or lymphoma can show bilateral occular involvement yet CBC is unremarkable. Plan: - Admit to floor team - Regular diet - Oral Prednisone 60mg qdaily - Ophthalmic artificial tears - Zofran 8mg q6h PRN for nausea/vomiting - Phenergan 25mg q6h PRN for nausea/vomiting - Toradol 30mg q6h PRN for pain - Vitals q8h - Intake and output - Await results of pending labs - Ophthalmology to follow Family History Medical History Relation Name Comments Asthma Maternal Aunt Glaucoma Paternal Grandmother Type 2 Diabetes Mellitus Paternal Grandmother Relation Name Status Comments Maternal Aunt Paternal Grandmother Social History Tobacco Use Types Packs/Day Years Used Date Smoking Tobacco: Never Smokeless Tobacco: Never Alcohol Use Standard Drinks/Week Comments No 0 (1 standard drink = 0.6 oz pur e alcohol) Comments No Sex and Gender Information Value Date Recorded Sex Assigned at Not on file Legal Sex Female 5:39 AM TONG SETTER Gender Identity Not on file Sexual Orientation Not on file Last Filed Vital Signs Vital Sign Reading Time Taken Comments Blood Pressure 104/66 07/22/2017 11:55 AM TONG SETTER Pulse 87 07/22/2017 11:55 AM TONG SETTER Temperature 37 C (98.6 F) 07/22/2017 11:55 AM TONG SETTER Respiratory Rate 16 07/22/2017 11:55 AM TONG SETTER Oxygen Saturation 98% 07/22/2017 11:55 AM TONG SETTER Inhaled Oxygen Concentration - - Weight 74.8 kg (165 lb) 07/22/2017 11:55 AM TONG SETTER Height 151.1 cm (4' 11.5) 07/22/2017 11:[address] Body Mass Index 32.77 07/22/2017 11:55 AM TONG SETTER Plan of Treatment Health Maintenance Due Date Last Done Comments HIV SCREENING 2014 HPV VACCINE (1 - 3-dose series) 2014 CHLAMYDIA/GONORRHEA SCREENING 2015 HEPATITIS C SCREENING 07/04/2017 DTAP/TDAP/TD VACCINES (1 - Tdap) 2018 HEPATITIS B VACCINE (1 of 3 - 19+ 3-dose series) 2018 DEPRESSION SCREENING 08/25/2024 COVID-19 VACCINE (1 - 2023-2 5 season) 2025 INFLUENZA VACCINE (#1) 2025 8, 07/26/2016 ZOSTER VACCINE (1 of 2) 2049 HIB VACCINE Aged Out No longer eligi ble based on patient's age to complete this topic MENINGOCOCCAL (Group B) VACCINE SHARED DECISION-MAKING Aged Out No longer eligible based on patient's age to complete this topic MENINGOCOCCAL GROUPS A/C/Y/W VACCINE Aged Out No longer eligible b ased on patient's age to complete this topic PNEUMOCOCCAL VACCINE Aged Out No long er eligible based on patient's age to complete this topic Insurance MEDICAID A[employer]NA BETTER [employer] [place] Care Teams Plaque Maker Relationship Specialty Start Date End Date Shasha Freeman MD [facility] [place] [address] PCP - General Family Medicine 06/19/14
--- OUTSIDE RECORDS SUMMARY | 2025-06-23 14:04 | XMS_ITS | Clinical Summary ---
Author Organization [facility] Address [address] [place] [address] Care Team Providers Care Processing Clerk Name Role Phone Unavailable Primary Care Provider Unavailabl e Social History Tobacco Use Types Packs/Day Years Used Date Smoking Tobacco: Never Assessed Comments Unknown Sex and Gender Information Value Date Recorded Sex Assigned at Not on file Legal Sex Female 12:16 PM LEARNING AND DEVELOPMENT OFFICER Gender Identity Not on file Sexual Orientation Not on file Plan of Treatment Health Maintenance Due Date Last Done Comments Hepatitis C Virus (HCV) Screening 1999 Influenza Immunization (#1) 04/25/202505/26, 07/26/2016, 05/23/2015 SARS-COV-2 Immunization ( season) 2025 Respiratory Syncytial Virus (RSV) Immunization (Adult) (1 - 1-dose 75+ series) 2074 Pneumococcal Immunization Combined Aged Out 07/14/2000, 02/28/2000, 01/29/2000 No longer eligible based on patient's age to complete this topic Hepatitis B Immunization Completed 001, 04/09/2000, 01/29/2000 DTaP/Tdap/Td Immunization Discontinued 2010, 04/23/2004, 04/02/2001, Additional history exists TdaP Immunization Completed 12/11/2010 Human Papillomavirus (HPV) Immunization Completed 12/19/2011, 04/22/2011, 12/11/2010 Meningococcal Immunization (ACWY) Completed 04/02/2017, 12/11/2010 Rotavirus Immunization Aged Out No lo nger eligible based on patient's age to complete this topic
--- NOTE | 2025-06-23 15:48 | ED.PREGNANCY ---
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 She reports she 3 test yesterday and they were all positive. Her last normal menstrual period was June 12. She reports she has been spotting since yesterday, does endorse some associated nausea without vomiting or abdominal pain. Did notice a gush of bright red blood from her vagina at 4:30 a.m. this morning. Bedside test was obtained in the ER and positive. GENERAL: Well-appearing, well-nourished, and in no acute distress. HEAD: Normocephalic, atraumatic. CHEST: Clear to auscultation. No respiratory distress. HEART: Regular rate and rhythm. NEURO: Alert and oriented x3. Patient screened in triage and initial orders placed. Additional care and disposition to be based upon diagnostic testing and treatment. Source: patient Mode of arrival: ambulatory Limitations: no limitations Related Data Home Medications ?Medication ?Instructions ?Recorded ?Confirmed ?Last Taken ?Type folic acid 1 mg tablet 2 mg PO BID 07/19/21 07/19/21 Unknown History vitamins no.144-folic 2 tablet PO DAILY 07/19/21 07/19/21 Unknown History acid 400 mcg chewable tablet () Allergies Allergy/AdvReac Type Severity Reaction Status Date / Time diphenhydramine Allergy Mild Anaphylaxis Verified 06/23/25 13:23 codeine Allergy Hives Verified 06/23/25 13:23 PMFSH Past Medical History Medical History (Updated 07/20/21 @ 17:47 by Vy CedeñoMD) Attention deficit hyperactivity disorder Depression Anxiety Gastroesophageal reflux disease Patient denies significant medical history Surgical History Surgical History (Updated 07/19/21 @ 23:02 by Eri Palm PA-C) No history of previous surgery Family History Family History Grandparent Diabetes mellitus Mother Bronchitis Social History Social History (Updated 07/19/21 @ 23:03 by Eri Palm PA-C) Social History: Surrogate decision maker: Hannah Wheatley, mother. Code status: Full code. Years smoked: 5 Smoking status: Current every day smoker Tobacco type: e-cigarettes/vaping Alcohol intake: never Substance use: never Substance use type: does not use Additional living arrangements comments: Currently living with her boyfriend in [place]. Additional occupation/education comments: Works at a [employer] Spiritual care concerns: No Course Vital Signs Vital signs: Vital Signs Temperature 36.6 C 06/23/25 13:34 Pulse Rate 92 06/23/25 13:34 Respiratory Rate 18 06/23/25 13:34 Blood Pressure 115/68 06/23/25 13:34 Pulse Oximetry 100 06/23/25 13:34 Oxygen Delivery Room Air 06/23/25 13:34 Temperature 36.6 C 06/23/25 13:34 Pulse Rate 92 06/23/25 13:34 Respiratory Rate 18 06/23/25 13:34 Blood Pressure 115/68 06/23/25 13:34 Pulse Oximetry 100 06/23/25 13:34 Oxygen Delivery Room Air 06/23/25 13:34 MDM - OB/Uterine Contractions Lab Data 06/23/25 16:03 06/23/25 16:03 Labs: Lab Results 06/23/25 06/23/25 Range/Units 15:52 16:03 WBC Pending RBC Pending Hgb Pending Hct Pending MCV Pending MCH Pending MCHC Pending RDW Pending Plt Count Pending MPV Pending Immature Gran % (Auto) Pending Neut % (Auto) Pending Lymph % (Auto) Pending [place] % (Auto) Pending Eos % (Auto) Pending Baso % (Auto) Pending Lymph # (Auto) Pending [place] # (Auto) Pending Eos # (Auto) Pending Baso # (Auto) Pending Abs Immat Gran (auto) Pending Absolute Neuts (auto) Pending Absolute Nucleated RBC Pending Nucleated RBC % Pending PT Pending INR Pending APTT Pending Sodium Pending Potassium Pending Chloride Pending Carbon Dioxide Pending Anion Gap Pending BUN Pending Creatinine Pending Estim Creat Clear Calc Pending Estimated GFR Pending Glucose Pending Calcium Pending Total Bilirubin Pending AST Pending ALT Pending Alkaline Phosphatase Pending Total Protein Pending Albumin Pending Beta HCG, Quant Pending Urine Color Pending Urine Appearance Pending Urine pH Pending Ur Specific [place] Pending Urine Protein Pending Urine Glucose (UA) Pending Urine Ketones Pending Ur Blood (Man) Pending Urine Nitrate Pending Urine Bilirubin Pending Urine Urobilinogen Pending Leukocyte Esterase Rfl Pending POC Urine HCG, Qual Positive (Negative) Discharge Plan Discharge Patient Disposition: Left Without Being Sn Triaged Patient Language: Macedonian Prescriptions: No Action folic acid 1 mg Tablet 2 mg PO BID 400 mcg Tablet,Chewable 2 tablet PO DAILY albuterol sulfate [ProAir HFA] 90 mcg/actuation HFA aerosol inhaler 2 puff inhalation QID PRN (Reason: shortness of breath or wheezing) Qty: 6.7 0RF Follow-up/Referrals: PHYSICIAN,FREIGHT ENGINEER [Non-Staff, Internal Medicine]
--- NOTE | 2025-06-23 15:52 | PC.NURSE ---
Patient did not answer page to go to a room
[2025-06-23 15:54] LABS: BEDSIDEPREGUCG Positive (Negative)
--- OUTSIDE RECORDS SUMMARY | 2025-06-23 16:06 | XMS_ITS | Clinical Summary ---
Author Organization [facility] [place] [address] [place] [address] Care Team Providers Care Hand Molder Meat Name Role Phone Marie Villalba MD Primary [...] Comments Blood Pressure 114/72 09/01/2023 11:23 AM BLOCK CUTTER Pulse 96 09/01/2023 11:23 AM BLOCK CUTTER Temperature - - Respiratory Rate 18 09/01/2023 11:23 AM BLOCK CUTTER Oxygen Saturation 98% 09/01/2023 11:23 AM BLOCK CUTTER Inhaled Oxygen Concentration - - Weight 76.2 kg (168 lb) 09/01/2023 11:23 AM BLOCK CUTTER Height 149.9 cm (4' 11) 09/01/2023 11:23 AM BLOCK CUTTER Body Mass Index 33.93 09/01/2023 11:23 AM BLOCK CUTTER Plan of Treatment Health Maintenance Due Date [...] 023, 07/14/2000, 02/28/2000, Additional history exists [facility] [place] Member Subscriber Plan / Payer (Ef fective 2021-Present) Name:Sylwia Wheatley Relation to Subscriber:Self Name:Sylwia Wheatley Payer ID:[id number] (NAIC) Group ID:Not on file Type:MEDICAID RISK OTHER Address: [facility] [id number] [id number] Care Teams Hand Molder Meat Relationship Specialty Start Date End Date Marie Villalba MD [address] [address] [place] [address] PCP - General Family Medicine 08/29/23
--- OUTSIDE RECORDS SUMMARY | 2025-06-23 16:06 | XMS_ITS | Clinical Summary ---
Author Organization [facility] Address [address] [place] [address] Care Team Providers Care Die Maintenance Technician Name Role Phone Unavailable Primary Care Provider Unavailabl e Social History Tobacco Use Types Packs/Day Years Used Date Smoking Tobacco: Never Assessed Comments Unknown Sex and Gender Information Value Date Recorded Sex Assigned at Not on file Legal Sex Female 12:16 PM PEOPLESOFT BUSINESS ANALYST Gender Identity Not on file Sexual Orientation [...]
--- OUTSIDE RECORDS SUMMARY | 2025-06-23 16:06 | XMS_ITS | Clinical Summary ---
Author Organization [facility] [address] [place] Address [address] [place] [address] Care Team Providers Care Wireworker Name Role Phone Shasha Freeman MD Primary Care Provider [phone] Source Comments [facility],non-owned Affiliates and Associated Physician Practices is amultiple site organization consisting of ambulatory clinics and hospital sitesin [place], [place], [place] and [place]. This disclosure is being madepursuant to the Care Everywhere program and may not contain all information available regarding this patient. Last updated 18.[facility] [place] Allergies Active Allergy Reactions Criticality Noted Date [...] 269 HgbA1c 5.0 05/08/21 Heterozygous MTHFR mutation [id number] 08/23/2021 Overview (08/23/2021): Yesenia put pt on [...] on file Legal Sex Female 5:39 AM MINES INSPECTOR Gender Identity Not on file Sexual Orientation Not on file Last Filed Vital Signs Vital Sign Reading Time Taken Comments Blood Pressure 104/66 07/22/2017 11:55 AM MINES INSPECTOR Pulse 87 07/22/2017 11:55 AM MINES INSPECTOR Temperature 37 C (98.6 F) 07/22/2017 11:55 AM MINES INSPECTOR Respiratory Rate 16 07/22/2017 11:55 AM MINES INSPECTOR Oxygen Saturation 98% 07/22/2017 11:55 AM MINES INSPECTOR Inhaled Oxygen Concentration - - Weight 74.8 kg (165 lb) 07/22/2017 11:55 AM MINES INSPECTOR Height 151.1 cm (4' 11.5) 07/22/2017 11:[address] Body Mass Index 32.77 07/22/2017 11:55 AM MINES INSPECTOR Plan of Treatment Health Maintenance Due Date [...] MEDICAID AETNA [facility] [place] Care Teams Wireworker Relationship Specialty Start Date End Date Shasha Freeman MD [facility] [place] [address] PCP - General Family Medicine 06/19/14
[2025-06-23 16:34] LABS: Hematocrit 38.7 % (37.0-47.0); Hemoglobin 13.4 g/dL (12.0-15.0); Immature Granulocyte Percent A 0.3 % (0-0.5); Lymphocytes Absolute Auto 2.50 K/mm3 (0.9-3.2); Mean Corpuscular HGB Conc 34.6 g/dl (32-36); Mean Corpuscular Hemoglobin 28.1 pg (26-34); Mean Corpuscular Volume 81.1 fl (80-100); Nucleated Red Blood Cells Absolute Auto 0.000 K/mm3 (0.0-0.012); Nucleated Red Blood Cells Perc 0.0 % (0.0-0.2); Platelet Count Result 309 k/mm3 (150-375); Red Blood Count 4.77 M/mm3 (4.2-5.4); White Blood Count 7.9 K/mm3 (4.5-10.0)
[2025-06-23 16:39] LABS: Add Urine Microscopic? NO; Appearance Urine Clear (Clear); Glucose Urine UA Negative (Negative); Leukocyte Esterase Ur Negative LEU/UL (Negative); Nitrate Urine Negative (Negative); Specific Grav Ur 1.008 (1.001-1.035)
[2025-06-23 16:40] LABS: Alanine Aminotransferase 20 U/L (6-35); Albumin Level 4.8 g/dL (3.5-5.1); Alkaline Phosphatase 70 U/L (38-126); Anion Gap 11 mmol/L (4-12); Aspartate Amino Transferase 25 U/L (14-36); Bilirubin,Total 0.5 mg/dL (0.2-1.3); Blood Urea Nitrogen 9 mg/dL (7-17); Calcium 9.2 mg/dL (8.4-10.2); Carbon Dioxide 24 mmol/L (22-30); Chloride 101 mmol/L (98-107); Estimated Glomerular Filt Rate > 60; Glucose 95 mg/dL (65-110); Potassium 4.3 mmol/L (3.4-5.0); Sodium 136 mmol/L (137-145); Total Protein 8.3 g/dL (6.3-8.2)
[2025-06-23 16:44] LABS: INR 1.0; Partial Thromboplastin Time 26.6 Seconds (22.3-36.8); Prothrombin Time 13.0 Seconds (11.1-14.7)
[2025-06-23 16:57] LABS: Beta HCG Quantitative 620.33 mIU/ML
[2025-06-23 17:30] VITALS: BP 111/75; PULSE 91; RESP 15; O2SAT 99
--- NOTE | 2025-06-23 17:59 | ED_ITS ---
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 NO ABDOMINAL PAIN OR CRAMPS. PATIENT IS 1 FAIR A 1 0 Related Data Home Medications ?Medication ?Instructions ?Recorded ?Confirmed ?Last Taken ?Type folic acid 1 mg tablet 2 mg PO BID 07/19/21 1 Unknown History vitamins no.144-folic 2 tablet PO DAILY 07/1907/19/21 Unknown History acid 400 mcg chewable tablet () Allergies Allergy/AdvReac Type Severity Reaction Status Date / Time diphenhydramine Allergy Mild Anaphylaxis Verified 06/23/25 13:23 codeine Allergy Hives Verified 06/23/25 13:23 Review of Systems 2 Review of Systems: All systems reviewed & are unremarkable except as noted in HPI and below PMFSH Past Medical History Medical History Attention deficit hyperactivity disorder Depression Anxiety Gastroesophageal reflux disease Patient denies significant medical history Surgical History Surgical History No history of previous surgery Family History Family History Grandparent Diabetes mellitus Mother Bronchitis Social History Social History Social History: Surrogate decision maker: Hannah Wheatley, mother. Code status: Full code. Years smoked: 5 Smoking status: Current every day smoker Tobacco type: e-cigarettes/vaping Alcohol intake: never Substance use: never Substance use type: does not use Additional living arrangements comments: Currently living with her boyfriend in [place]. Additional occupation/education comments: Works at a [employer] Spiritual care concerns: No Exam 2 Narrative: GENERAL APPEARANCE: WELL-DEVELOPED, WELL-NOURISHED SKIN: NORMAL COLOR HEAD: NORMOCEPHALIC, NONTRAUMATIC EYES: CLEAR CONJUNCTIVA ENT: OROPHARYNX NORMAL, EARS NORMAL, NOSE NORMAL NECK: SUPPLE, NONTENDER CHEST AND RESPIRATORY: AIRWAY PATENT, NO RESPIRATORY DISTRESS, NO ACCESSORY MUSCLE USE HEART: REGULAR RATE/RHYTHM ABDOMEN: SOFT, NONTENDER, NO ORGANOMEGALY, QUIET BOWEL SOUNDS VASCULAR: NORMAL PERIPHERAL PULSES, NORMAL CAPILLARY REFILL. MUSCULOSKELETAL: NORMAL RANGE OF MOTION, NONTENDER BACK NEUROLOGIC: ALERT AND ORIENTED ?3, DEPUTY BRAND INSPECTOR IS NORMAL TESTED, NO GROSS MOTOR DEFICIT Course Vital Signs Vital signs: Vital Signs Temperature 36.6 C 06/23/25 13:34 Pulse Rate 92 06/23/25 13:34 Respiratory Rate 18 06/23/25 13:34 Blood Pressure 115/68 06/23/25 13:34 Pulse Oximetry 100 06/23/25 13:34 Oxygen Delivery Room Air 06/23/25 13:34 Temperature 36.6 C 06/23/25 13:34 Pulse Rate 91 06/23/25 17:30 Respiratory Rate 15 06/23/25 17:30 Blood Pressure 111/75 06/23/25 17:30 Pulse Oximetry 99 06/23/25 17:30 Oxygen Delivery Room Air 06/23/25 13:34 MDM - Female Genitourinary MDM Narrative Medical decision making narrative: PATIENT PRESENTS WITH VAGINAL SPOTTING PTS SHE HAS EEA IS 620, QUESTIONABLE EARLY , MISCARRIAGE. PELVIC ULTRASOUND SHOWED NO INTRAUTERINE PATIENT DENIES ABDOMINAL PAIN FOLLOW-UP WITH OBGYN, SERIAL BETA HCG THE PT WAS DISCHARGED TO HOME.THE PT,S CONDITION UPON DISCHARGE WAS FAIR,EDUCATION WAS PROVIDED TO THE PT IN REFERENCE TO THE FINAL IMPRESSION,DISCHARGE STUDY RESULTS,TREATMENT,PROGNOSIS AND NEED FOR FOLLOW UP . Differential Diagnosis Differential diagnosis: Likely other (EARLY , THREATENED ) Lab Data Attestation: I reviewed the patient's lab results. 06/23/25 16:02 06/23/25 16:02 Labs: Lab Results 06/23/25 06/23/25 06/23/25 Range/Units 15:52 16:02 16:03 WBC 7.9 Cancelled (4.5-10.0) K/mm3 RBC 4.77 Cancelled (4.2-5.4) M/mm3 Hgb 13.4 D Cancelled (12.0-15.0) g/dL Hct 38.7 Cancelled (37.0-47.0) % MCV 81.1 Cancelled (80-100) fl MCH 28.1 Cancelled (26-34) pg MCHC 34.6 Cancelled (32-36) g/dl RDW 13.0 Cancelled (11.5-14.5) % Plt Count 309 Cancelled (150-375) k/mm3 MPV 8.4 Cancelled (7.4-10.4) fl Immature Gran % (Auto) 0.3 Cancelled (0-0.5) % Neut % (Auto) 55.9 Cancelled (45.5-73.1) % Lymph % (Auto) 31.6 Cancelled (18.3-44.2) % [place] % (Auto) 5.9 Cancelled (2.6-8.5) % Eos % (Auto) 5.4 H Cancelled (0-4.4) % Baso % (Auto) 0.9 Cancelled (0.2-1.2) % Lymph # (Auto) 2.50 Cancelled (0.9-3.2) K/mm3 [place] # (Auto) 0.5 Cancelled (0.1-0.6) K/mm3 Eos # (Auto) 0.4 H Cancelled (0-0.3) K/mm3 Baso # (Auto) 0.1 Cancelled (0.0-0.1) K/mm3 Abs Immat Gran (auto) 0.02 Cancelled (0.00-0.031) K/mm3 Absolute Neuts (auto) 4.4 Cancelled (1.3-6.7) K/mm3 Absolute Nucleated RBC 0.000 Cancelled (0.0-0.012) K/mm3 Nucleated RBC % 0.0 Cancelled (0.0-0.2) % % Immature Plt Fraction Cancelled PT 13.0 Cancelled (11.1-14.7) Seconds INR 1.0 Cancelled APTT 26.6 Cancelled (22.3-36.8) Seconds Sodium 136 L Cancelled (137-145) mmol/L Potassium 4.3 Cancelled (3.4-5.0) mmol/L Chloride 101 Cancelled (98-107) mmol/L Carbon Dioxide 24 Cancelled (22-30) mmol/L Anion Gap 11 Cancelled (4-12) mmol/L BUN 9 Cancelled (7-17) mg/dL Creatinine 0.77 Cancelled (0.7-1.0) mg/dL Estim Creat Clear Calc Not Reportable Cancelled Estimated GFR > 60 Cancelled (59 - ) Glucose 95 Cancelled (65-110) mg/dL Calcium 9.2 Cancelled (8.4-10.2) mg/dL Total Bilirubin 0.5 Cancelled (0.2-1.3) mg/dL AST 25 Cancelled (14-36) U/L ALT 20 Cancelled (6-35) U/L Alkaline Phosphatase 70 Cancelled (38-126) U/L Total Protein 8.3 H Cancelled (6.3-8.2) g/dL Albumin 4.8 Cancelled (3.5-5.1) g/dL Beta HCG, Quant 620.33 Cancelled mIU/ML Urine Color Yellow Cancelled (Yellow) Urine Appearance Clear Cancelled (Clear) Urine pH 7.5 Cancelled (5.0-9.0) Ur Specific [place] 1.008 Cancelled (1.001-1.035) Urine Protein Negative Cancelled (Negative) mg/dL Urine Glucose (UA) Negative Cancelled (Negative) mg/dL Urine Ketones Negative Cancelled (Negative) mg/dL Ur Blood (Man) Negative Cancelled (Negative) Urine Nitrate Negative Cancelled (Negative) Urine Bilirubin Negative Cancelled (Negative) Urine Urobilinogen 0.2 Cancelled (<2.0) mg/dL Add Ur Microanalysis Cancelled Leukocyte Esterase Rfl Negative Cancelled (Negative) PARESH/UL Urine RBC Cancelled Urine WBC Cancelled Urine WBC Clumps Cancelled Ur Squamous Epith Cells Cancelled Ur Transition Epith Cell Cancelled Ur Renal Epithelial Cell Cancelled Taran Biurate Crystals Cancelled Calcium Carbonate Cryst Cancelled Calcium Phosphate Cryst Cancelled Calcium Oxalate Crystal Cancelled Leucine Crystals Cancelled Cystine Crystals Cancelled Uric Acid Crystals Cancelled Triple Phos Crystals Cancelled Sulfonamide Crystals Cancelled Cholesterol Crystals Cancelled Talc Crystals Cancelled Tyrosine Crystals Cancelled Hippuric Acid Crystals Cancelled Bilirubin Crystals Cancelled Other Crystals Cancelled Amorphous Sediment Cancelled Other Sediment Cancelled Urine Bacteria Cancelled Urine Casts Cancelled Cellular Casts Cancelled Epithelial Casts Cancelled Fatty Casts Cancelled Hyaline Casts Cancelled Granular Casts Cancelled Waxy Casts Cancelled Broad Casts Cancelled RBC Casts Cancelled WBC Casts Cancelled Urine Starch Cancelled Urine Mucus Cancelled Urine Trichomonas Cancelled Urine Yeast (Budding) Cancelled Ur Oval Fat Bodies Cancelled POC Urine HCG, Qual Positive (Negative) Sperm Presence Cancelled Blood Type O Positive Antibody Screen Negative Screen Not Reportable Baby's Blood Type Not Reportable Baby's YUMIKO Not Reportable Doses of RhIg Required 0 Imaging Data Radiologist's impression: Impressions Ultrasound 06/23/25 18:58 IMPRESSION: No intrauterine identified. Correlation with beta-hCG and follow-up with surgery technician is recommended. Critical Care Time Critical Care Time Critical Care Time: No Discharge Plan Discharge Clinical Impression: , threatened Patient Disposition: Home Condition: Stable Instructions: Threatened Miscarriage (ED) Additional Instructions: RETURN IF SYMPTOMS ARE WORSENING , CALL YOUR OBGYN FOR APPOINTMENT, TAKE TYLENOL NEEDED FOR ACHES AND PAIN, CONTINUE HOME MEDICATIONS. REPEAT BETA-HCG IN 5 DAYS Patient Language: Cape Verdean Prescriptions: No Action folic acid 1 mg Tablet 2 mg PO BID 400 mcg Tablet,Chewable 2 tablet PO DAILY albuterol sulfate [ProAir HFA] 90 mcg/actuation HFA aerosol inhaler 2 puff inhalation QID PRN (Reason: shortness of breath or wheezing) Qty: 6.7 0RF Follow-up/Referrals: Tyrone Cisneros MD [Physician, CUSTOMER SUPPORT ASSISTANT] PHYSICIAN,WIRE HARNESS DESIGN ENGINEER [Non-Staff, Internal Medicine]
== END 2025-06-23 20:08 | disposition home or self-care (01) ==
PROVIDERS: Nurse Practitioner Family; Emergency Provider Emergency Medicine
DX: O20.0 Threatened abortion (principal); O99.330 Smoking (tobacco) complicating pregnancy, unspecified trimester; F17.290 Nicotine dependence, other tobacco product, uncomplicated; Z3A.00 Weeks of gestation of pregnancy not specified
CPT/HCPCS: 36415; 76801; 80053; 81003; 81025; 84702; 85025; 85461; 85610; 85730; 86850; 86900; 86901; 99284

== ENCOUNTER 2025-06-27 09:39 | Outpatient (CLI) | payer SELFPAY ==
--- OUTSIDE RECORDS SUMMARY | 2025-06-27 10:33 | XMS_ITS | Clinical Summary ---
Author Organization [facility] [place] [address] [place] [address] Care Team Providers Care Type Rolling Machine Operator Name Role Phone Marie Villalba MD Primary [...] Comments Blood Pressure 114/72 09/01/2023 11:23 AM WINDOW SHADE INSTALLER Pulse 96 09/01/2023 11:23 AM WINDOW SHADE INSTALLER Temperature - - Respiratory Rate 18 09/01/2023 11:23 AM WINDOW SHADE INSTALLER Oxygen Saturation 98% 09/01/2023 11:23 AM WINDOW SHADE INSTALLER Inhaled Oxygen Concentration - - Weight 76.2 kg (168 lb) 09/01/2023 11:23 AM WINDOW SHADE INSTALLER Height 149.9 cm (4' 11) 09/01/2023 11:23 AM WINDOW SHADE INSTALLER Body Mass Index 33.93 09/01/2023 11:23 AM WINDOW SHADE INSTALLER Plan of Treatment Health Maintenance Due Date [...] 023, 07/14/2000, 02/28/2000, Additional history exists Insurance [facility] AETNA BETTER [facility] Care Teams Type Rolling Machine Operator Relationship Specialty Start Date End Date Marie Villalba MD [address] [address] [address] [place], [place] [id number] PCP - General Family Medicine 08/29/23
--- OUTSIDE RECORDS SUMMARY | 2025-06-27 10:33 | XMS_ITS | Encounter Summary ---
Author Organization [facility] Address [address] [place] [address] Care Team Providers Care Systematic Theology Professor Name Role Phone KeshavIvan cummings Ursula FLEMING Primary Care Provider [phone] Encounter Details Date Type Department Care Team (Late st Contact Info) Description 12/14/2021 Hospital Follow-up Call [facility] [place], [place] [id number] Dalia Pugh, RN Social History Tobacco Use Types Packs/Day Years Used Date Smoking Tobacco: Former Smokeless Tobacco: Never Alcohol Use Standard Drinks/Week Comments Not Currently 0 (1 standard drink = 0.6 oz pur e alcohol) Humiliation, Afraid, Rape, and Kick questionnair e Answer Date Recorded Within the last year, have y ou been afraid of your partner or ex-partner? No 12/09/2021 Within the last year, have y ou been humiliated or emotionally abused in other ways by your partner or ex-partner? No Within the last year, have y ou been kicked, hit, slapped, or otherwise physically hurt by your partner or ex-partner? No 12/09/2021 Within the last year, have y ou been raped or forced to have any kind of sexual activity by your partner or ex-partner? No 12/09/2021 Social Connection and Isolation Panel Answer Date Recorded In a typical week, how many times do you talk on the phone with family, friends, or neighbors? More than three times a week 12/09/2021 How often do you get togethe r with friends or relatives? Three times a week 12/09/2021 How often do you attend [facility] or christian services? Never 12/09/2021 Do you belong to any clubs o r organizations such as judaism groups, unions, fraternal or athletic groups, or school groups? Patient declined 12/09/2021 How often do you attend meet ings of the clubs or organizations you belong to? Never 12/09/2021 Are you , , di vorced, , never , or living with a partner? Living with partner 12/09/2021 AUDIT-C Answer Date Recorded Q1: How often do you have a drink containing alc ohol? Never 12/09/2021 Average Number of Drinks Not on file 022 Frequency of Binge Drinking Not on file 11/23 Overall Financial Resource Strain (CARDIA) Answe r Date Recorded How hard is it for you to pa y for the very basics like food, housing, medical care, and heating? Not hard at all 12/09/2021 [facility] - Occupational Stress Questionnaire Answer Date Recorded Do you feel stress - tense, restless, nervous, or anxious, or unable to sleep at night because your mind is troubled all the time - these days? Not at all 12/09/2021 Exercise Vital Sign Answer Date Recorde d On average, how many days pe r week do you engage in moderate to strenuous exercise (like a brisk walk)? 3 days 12/09/2021 On average, how many minutes do you engage in exercise at this level? 30 min 12/09/2021 Hunger Vital Sign Answer Date Recorded Within the past 12 months, y ou worried that your food would run out before you got the money to buy more. Never true 12/10/19 22 Within the past 12 months, t he food you bought just didn't last and you didn't have money to get more. Never true 12/09/2021 PRAPARE - Transportation Answer Date Re corded In the past 12 months, has l ack of transportation kept you from medical appointments or from getting medications? No 11/23 In the past 12 months, has l ack of transportation kept you from meetings, work, or from getting things needed for daily living? No 12/09/2021 Housing Stability Vital Sign Answer Brian e Recorded In the last 12 months, was t here a time when you were not able to pay the mortgage or rent on time? No 12/09/2021 In the last 12 months, how many places have you lived? 1 12/09/2021 In the last 12 months, was t here a time when you did not have a steady place to sleep or slept in a snf (including now)? No 12/09/2021 Depression Answer Date Recor ded Last EPDS Total Score 5 12/10/2021 Last EPDS Self Harm Result Unrecognized value Comments No Sex and Gender Information Value Date Recorded Sex Assigned at Not on file Legal Sex Female 2:58 PM CDT Gender Identity Female 12/03/2021 2:46 PM CDT Sexual Orientation Not on file COVID-19 Exposure Response Date Recorded In the last 10 days, have yo u been in contact with someone who was confirmed or suspected to have Coronavirus/COVID-19? No / Unsure 12/09/2021 10:30 AM CDT documented as of this encounter Functional Status * RETIRED Are you deaf or do you have serious difficulty hearing Answer Date of Assessment Author Status No 12/09/2021 10:56 AM CDT Acti ve * RETIRED Are you blind or do you have serious difficulty seeing, even when wearing glasses? Answer Date of Assessment Author Status No 12/09/2021 10:56 AM CDT Acti ve * Do you have serious difficulty walking or climbing stairs? Answer Date of Assessment Author Status No 12/09/2021 10:56 AM CDT Bambi Singer RN Active * Do you have difficulty dressing or bathing? Answer Date of Assessment Author Status No 12/09/2021 10:56 AM CDT Bambi Singer RN Active * Because of a physical, mental, or emotional condition, do you have difficulty doing errands alone such as visiting a doctor's office or shopping? Answer Date of Assessment Author Status No 12/09/2021 10:56 AM INDERT Bambi Singer RN Active documented as of this encounter Mental Status * Because of a physical, mental, or emotional condition, do you have serious difficulty concentrating, remembering, or making decisions? Answer Entry Date Author Status No 12/09/2021 10:56 AM CDT Lucrecia, Bambi M, RN Active documented in this encounter Plan of Treatment Not on file documented as of this encounter Visit Diagnoses Not on filedocumented in this encounter Care Teams Systematic Theology Professor Relationship Specialty Start Date End Date Ivan Cortes, [place] [address] PCP - General Nurse Practitioner Family 11/15/21 documented as of this encounter
--- OUTSIDE RECORDS SUMMARY | 2025-06-27 10:33 | XMS_ITS | Clinical Summary ---
Author Organization [facility] Address [address] [place] [address] Care Team Providers Care Vmware Systems Administrator Name Role Phone Shasha Freeman MD Primary Care Provider [phone] Source Comments [facility],non-owned Affiliates and Associated Physician Practices is amultiple site organization consisting of ambulatory clinics and hospital sitesin [place], [place], [place] and [place]. This disclosure is being madepursuant to the Care Everywhere program and may not contain all information available regarding this patient. 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 08/23/2021 Overview (08/23/2021): Yesenia put pt on [...] on file Legal Sex Female 5:39 AM APPLICATIONS PROGRAMMER Gender Identity Not on file Sexual Orientation Not on file Last Filed Vital Signs Vital Sign Reading Time Taken Comments Blood Pressure 104/66 07/22/2017 11:55 AM APPLICATIONS PROGRAMMER Pulse 87 07/22/2017 11:55 AM APPLICATIONS PROGRAMMER Temperature 37 C (98.6 F) 07/22/2017 11:55 AM APPLICATIONS PROGRAMMER Respiratory Rate 16 07/22/2017 11:55 AM APPLICATIONS PROGRAMMER Oxygen Saturation 98% 07/22/2017 11:55 AM APPLICATIONS PROGRAMMER Inhaled Oxygen Concentration - - Weight 74.8 kg (165 lb) 07/22/2017 11:55 AM APPLICATIONS PROGRAMMER Height 151.1 cm (4' 11.5) 07/22/2017 11:[address] Body Mass Index 32.77 07/22/2017 11:55 AM APPLICATIONS PROGRAMMER Plan of Treatment Health Maintenance Due Date [...] MEDICAID [employer] [facility] [place] Care Teams Vmware Systems Administrator Relationship Specialty Start Date End Date Shasha Freeman MD [facility] [place] [address] PCP - General Family Medicine 06/19/14
--- OUTSIDE RECORDS SUMMARY | 2025-06-27 10:33 | XMS_ITS | Clinical Summary ---
Author Organization [facility] Address [address] [place] [address] Care Team Providers Care Nissan Sales Consultant Name Role Phone Unavailable Primary Care Provider Unavailabl e Social History Tobacco Use Types Packs/Day Years Used Date Smoking Tobacco: Never Assessed Comments Unknown Sex and Gender Information Value Date Recorded Sex Assigned at Not on file Legal Sex Female 12:16 PM SHARE DAIRY FARMER Gender Identity Not on file Sexual Orientation [...]
--- OUTSIDE RECORDS SUMMARY | 2025-06-27 10:34 | XMS_ITS | Clinical Summary ---
Author Organization [facility] Address [address] [place] [address] Care Team Providers Care Project Engineer Name Role Phone KeshavIvan cummings Ursula [facility] Primary Care Provider [phone] Allergies Active Allergy Reactions Criticality Noted Date Comments Diphenhydramine Swelling Medium 11/15/2021 Hydrocodone Hives Medium 11/15/2021 Medications vitamin 27-1 MG Tab tablet Take 1 tablet by mouth daily. Active albuterol sulfate HFA 108 (90 Base) MCG/ACT inhaler Inhale 2 puffs into the lungs every 6 (six) hours as needed for Wheezing. Active Iron, Ferrous Sulfate, 325 (65 Fe) MG Tab Take 325 mg by mouth 2 (two) times daily. 11/30/2021 Active Active Problems Problem Noted Date Diagnosed Date 12/09/2021 Family History Medical History Relation Comments Cancer Maternal Grandfather Diabetes Paternal Grandmother Relation Status Comments Brother Alive Father Alive Maternal Grandfather Alive Maternal Grandmother Alive Mother Alive Paternal Grandfather Paternal Grandmother Social History Tobacco Use Types [...] week 12/09/2021 How often do you attend chur or zoroastrian services? Never 12/09/2021 Do you belong to any clubs o r organizations such as yarsani groups, unions, fraternal or athletic groups, or [...] and heating? Not hard at all 12/09/2021 [facility] of Occupat ional Health - Occupational Stress [...] place to sleep or slept in a fpc (including now)? No 12/09/2021 Depression Answer Date Recor ded Last EPDS Total Score 5 12/10/2021 Last EPDS Self Harm Result Unrecognized value Comments No Sex and Gender Information Value Date Recorded Sex Assigned at Not on file Legal Sex Female 2:58 PM CDT Gender Identity Female 12/03/2021 2:46 PM CDT Sexual Orientation Not on file Last Filed Vital Signs Vital Sign Reading Time Taken Comments Blood Pressure 120/72 12/12/2021 12:15 PM CDT Pulse 95 12/12/2021 12:15 PM CDT Temperature 37.2 C (99 F) 12/12/2021 12:15 PM CDT Respiratory Rate 16 12/12/2021 12:15 PM CDT Oxygen Saturation 100% 12/12/2021 12:15 PM CDT Inhaled Oxygen Concentration - - Weight 84.8 kg (187 lb) 12/10/2021 7:05 AM CDT Height 149.9 cm (4' 11) 12/10/2021 7:05 AM CDT Body Mass Index 37.77 12/10/2021 7:05 AM CDT Plan of Treatment Health Maintenance Due Date Last Done Comments Cervical Cancer Screening Pap Smear (Age 21 to 29) Every 3 Years 1999 Cervical Cancer Screening 1999 Annual Physical 2002 Hepatitis C 2017 COVID-19 Vaccine ( season) 2025 Influenza Adult (#1) 2025 08/22/2021, 06/15/2018, 07/26/2016, Additional history exists DTaP, Tdap and Td Vaccines (8 - Td or Tdap) 09/18/2031 09/18/2021, 12/11/2010, 04/23/2004, Additional history exists Pneumococcal Vaccine: Pediatrics (0 to 5 Years) and At-Risk Patients (6 to 49 Years) Aged Out 07/14/2000, 02/28/2000, 01/29/2000 No longer eligible based on patient's age to complete this topic Hepatitis B Vaccines Completed 10/15/2000, 04/09/2000, 01/29/2000 HPV Vaccines Completed 12/19/2011, 03/26, 12/11/2010 Meningococcal Vaccine Completed 04/02/2017, 011 Hepatitis A Vaccines Aged Out No long er eligible based on patient's age to complete this topic Meningococcal B Vaccine Aged Out No l onger eligible based on patient's age to complete this topic RSV Immunizations Under 20 Months Aged Out No longer eligible based on patient's age to complete this topic Insurance AETNA MEDICAID Advance Directives * Full Code (Latest Code Status on File) Date Activated Date Inactivated Comments 12/09/2021 10:42 AM 12/12/2021 4:46 PM Care Teams Project Engineer Relationship Specialty Start Date End Date Ivan [place] [address] PCP - General Nurse Practitioner Family 11/15/21
[2025-06-27 11:06] LABS: Beta HCG Quantitative 471.66 mIU/ML
== END 2025-06-27 09:40 | disposition home or self-care (01) ==
PROVIDERS: Visit Provider Nurse Practitioner Obstetrics & Gynecology
DX: O20.0 Threatened abortion (principal); Z3A.00 Weeks of gestation of pregnancy not specified
CPT/HCPCS: 36415; 84702

== ENCOUNTER 2025-06-28 08:25 | Observation (INO) | payer SELFPAY ==
[2025-06-28] VITALS (7 sets, daily range): BP systolic 92–105; BP diastolic 49–64; PULSE 80–95; RESP 16–20; TEMP 36.6–36.8; O2SAT 99–100; BMI 33.8
--- NOTE | ~2025-06-28 | US_ITS ---
EXAMINATION: OB ultrasound less than or equal to 14 weeks INDICATION: Decreasing beta hCG level with bleeding and pain TECHNIQUE: Multiple transabdominal and transvaginal sonographic images of the pelvis were obtained. COMPARISON: June 23 FINDINGS: Uterus: The uterus appears normal in size, shape, and position. There is no intrauterine gestation seen. A nabothian cyst is noted incidentally in the cervix. The endometrium appears normal, with a thickness of 8 mm. Right Ovary: The right ovary is present. Vascular flow is present. There is a 3.2 cm cystic structure with a lacy echotexture, consistent with a hemorrhagic cyst. Left Ovary: The left ovary appears normal.. Vascular flow is present. There is mild to moderate degree of free fluid in the pelvis, increased somewhat from the prior study. IMPRESSION: 1. No intrauterine gestation is seen. No positive evidence for ectopic . Ectopic is not excluded from this study. This could also relate to a fairly early intrauterine or blighted ovum/completed Ab. 2. Free pelvic fluid, somewhat increased from the prior study. 3. Probable hemorrhagic right ovarian cyst. Reviewed, dictated and finalized at location A. EREAU CLERK IMPRESSION: 1. No intrauterine gestation is seen. No positive evidence for ectopic pregnanc y. Ectopic is not excluded from this study. This could also relate to a fairly early intrauterine or blighted ovum/completed Ab. 2. Free pelvic fluid, somewhat increased from the prior study. 3. Probable hemorrhagic right ovarian cyst.
--- OUTSIDE RECORDS SUMMARY | 2025-06-28 08:43 | XMS_ITS | Clinical Summary ---
Author Organization [facility] Address [address] [place] [address] Care Team Providers Care Client Associate Name Role Phone Shasha Freeman MD Primary Care Provider [phone] Source Comments [facility],non-owned Affiliates and Associated Physician Practices is amultiple site organization consisting of ambulatory clinics and hospital sitesin [place], [place], [place] and [place]. This disclosure is being madepursuant to the Care Everywhere program and may not contain all information available regarding this patient. Last updated 18.[facility] Allergies Active Allergy Reactions Criticality Noted Date [...] 269 HgbA1c 5.0 05/08/21 Heterozygous MTHFR mutation [id number] 08/23/2021 Overview (08/23/2021): Yesenia put pt on [...] on file Legal Sex Female 5:39 AM DREDGE PUMP OPERATOR Gender Identity Not on file Sexual Orientation Not on file Last Filed Vital Signs Vital Sign Reading Time Taken Comments Blood Pressure 104/66 07/22/2017 11:55 AM DREDGE PUMP OPERATOR Pulse 87 07/22/2017 11:55 AM DREDGE PUMP OPERATOR Temperature 37 C (98.6 F) 07/22/2017 11:55 AM DREDGE PUMP OPERATOR Respiratory Rate 16 07/22/2017 11:55 AM DREDGE PUMP OPERATOR Oxygen Saturation 98% 07/22/2017 11:55 AM DREDGE PUMP OPERATOR Inhaled Oxygen Concentration - - Weight 74.8 kg (165 lb) 07/22/2017 11:55 AM DREDGE PUMP OPERATOR Height 151.1 cm (4' 11.5) 07/22/2017 11:[address] Body Mass Index 32.77 07/22/2017 11:55 AM DREDGE PUMP OPERATOR Plan of Treatment Health Maintenance Due Date [...] MEDICAID AETNA [facility] [place] Care Teams Client Associate Relationship Specialty Start Date End Date Shasha Freeman MD [facility] [place] [address] PCP - General Family Medicine 06/19/14
--- OUTSIDE RECORDS SUMMARY | 2025-06-28 08:43 | XMS_ITS | Clinical Summary ---
Author Organization [facility] Address [address] [place] [address] Care Team Providers Care Rn Midwife Name Role Phone Unavailable Primary Care Provider Unavailabl e Social History Tobacco Use Types Packs/Day Years Used Date Smoking Tobacco: Never Assessed Comments Unknown Sex and Gender Information Value Date Recorded Sex Assigned at Not on file Legal Sex Female 12:16 PM QUICK SERVICE TECHNICIAN Gender Identity Not on file Sexual Orientation [...]
--- OUTSIDE RECORDS SUMMARY | 2025-06-28 08:43 | XMS_ITS | Clinical Summary ---
Author Organization [facility] [address] [place] [address] Care Team Providers Care Air Sampling And Monitoring Name Role Phone Marie Villalba MD Primary [...] Comments Blood Pressure 114/72 09/01/2023 11:23 AM SPOT BILLING CLERK Pulse 96 09/01/2023 11:23 AM SPOT BILLING CLERK Temperature - - Respiratory Rate 18 09/01/2023 11:23 AM SPOT BILLING CLERK Oxygen Saturation 98% 09/01/2023 11:23 AM SPOT BILLING CLERK Inhaled Oxygen Concentration - - Weight 76.2 kg (168 lb) 09/01/2023 11:23 AM SPOT BILLING CLERK Height 149.9 cm (4' 11) 09/01/2023 11:23 AM SPOT BILLING CLERK Body Mass Index 33.93 09/01/2023 11:23 AM SPOT BILLING CLERK Plan of Treatment Health Maintenance Due Date [...] 07/14/2000, 02/28/2000, Additional history exists Insurance [facility] AETNA BETTER [facility] Care Teams Air Sampling And Monitoring Relationship Specialty Start Date End Date Marie Villalba MD [address] [address] [address] [place], [place] [phone] PCP - General Family Medicine 08/29/23
[2025-06-28 09:01] LABS: Hematocrit 34.2 % (37.0-47.0); Hemoglobin 11.9 g/dL (12.0-15.0); Immature Granulocyte Percent A 0.4 % (0-0.5); Lymphocytes Absolute Auto 1.88 K/mm3 (0.9-3.2); Mean Corpuscular HGB Conc 34.8 g/dl (32-36); Mean Corpuscular Hemoglobin 28.4 pg (26-34); Mean Corpuscular Volume 81.6 fl (80-100); Nucleated Red Blood Cells Absolute Auto 0.000 K/mm3 (0.0-0.012); Nucleated Red Blood Cells Perc 0.0 % (0.0-0.2); Platelet Count Result 263 k/mm3 (150-375); Red Blood Count 4.19 M/mm3 (4.2-5.4); White Blood Count 6.7 K/mm3 (4.5-10.0)
[2025-06-28 09:23] LABS: Alanine Aminotransferase 18 U/L (6-35); Albumin Level 4.5 g/dL (3.5-5.1); Alkaline Phosphatase 53 U/L (38-126); Anion Gap 8 mmol/L (4-12); Aspartate Amino Transferase 20 U/L (14-36); Bilirubin,Total 0.3 mg/dL (0.2-1.3); Blood Urea Nitrogen 11 mg/dL (7-17); Calcium 9.2 mg/dL (8.4-10.2); Carbon Dioxide 25 mmol/L (22-30); Chloride 104 mmol/L (98-107); Estimated Glomerular Filt Rate > 60; Glucose 96 mg/dL (65-110); Potassium 4.2 mmol/L (3.4-5.0); Sodium 137 mmol/L (137-145); Total Protein 7.6 g/dL (6.3-8.2)
[2025-06-28 09:35] LABS: Beta HCG Quantitative 610.20 mIU/ML
--- OUTSIDE RECORDS SUMMARY | 2025-06-28 11:03 | XMS_ITS | Encounter Summary ---
Author Organization [facility] Address [address] [place] [address] Care Team Providers Care Certified Orthotic Fitter Name Role Phone KeshavIvan cummings Ursula FLEMING Primary Care Provider [phone] Encounter Details Date Type Department Care Team (Late st Contact Info) Description 12/14/2021 Hospital Follow-up Call [facility] [place], [place] [phone] Dalia Pugh, RN Social History Tobacco Use [...] week 12/09/2021 How often do you attend [facility] or christian services? Never 12/09/2021 Do you belong to any clubs o r organizations such as christianity groups, unions, fraternal or athletic groups, or [...] and heating? Not hard at all 12/09/2021 [facility] of Occupat ional Health - Occupational Stress [...] place to sleep or slept in a assisted (including now)? No 12/09/2021 Depression Answer Date [...] on filedocumented in this encounter Care Teams Certified Orthotic Fitter Relationship Specialty Start Date End Date Ivan Cortes, [place] [address] PCP - General Nurse Practitioner Family 11/15/21 documented as of this encounter
--- OUTSIDE RECORDS SUMMARY | 2025-06-28 11:03 | XMS_ITS | Clinical Summary ---
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
--- OUTSIDE RECORDS SUMMARY | 2025-06-28 11:03 | XMS_ITS | Clinical Summary ---
Author Organization [facility] Address [address] [place] [address] Care Team Providers Care Stitcher Feeder Name Role Phone KeshavIvan cummings Ursula [facility] Primary Care Provider Allergies Active Allergy Reactions Criticality Noted Date [...] How often do you attend chur or christian services? Never 12/09/2021 Do you belong to any clubs o r organizations such as gnosticism groups, unions, fraternal or athletic groups, or [...] and heating? Not hard at all 12/09/2021 [facility] of Occupat ional Health - Occupational Stress [...] place to sleep or slept in a senior care (including now)? No 12/09/2021 Depression Answer Date [...] 10:42 AM 12/12/2021 4:46 PM Care Teams Stitcher Feeder Relationship Specialty Start Date End Date Ivan Cort[place] [address] PCP - General Nurse Practitioner Family 11/15/21
--- OUTSIDE RECORDS SUMMARY | 2025-06-28 11:03 | XMS_ITS | Clinical Summary ---
Author Organization [facility] [address] [place] [address] Care Team Providers Care Fleet Operations Manager Name Role Phone Marie Villalba MD Primary [...] Comments Blood Pressure 114/72 09/01/2023 11:23 AM EDGE FINISHER Pulse 96 09/01/2023 11:23 AM EDGE FINISHER Temperature - - Respiratory Rate 18 09/01/2023 11:23 AM EDGE FINISHER Oxygen Saturation 98% 09/01/2023 11:23 AM EDGE FINISHER Inhaled Oxygen Concentration - - Weight 76.2 kg (168 lb) 09/01/2023 11:23 AM EDGE FINISHER Height 149.9 cm (4' 11) 09/01/2023 11:23 AM EDGE FINISHER Body Mass Index 33.93 09/01/2023 11:23 AM EDGE FINISHER Plan of Treatment Health Maintenance Due Date [...] 07/14/2000, 02/28/2000, Additional history exists Insurance [facility] AETNA BETTER [facility] Care Teams Fleet Operations Manager Relationship Specialty Start Date End Date Marie Villalba MD [address] [address] [address] [place], [place] [phone] PCP - General Family Medicine 08/29/23
--- OUTSIDE RECORDS SUMMARY | 2025-06-28 11:03 | XMS_ITS | Clinical Summary ---
Author Organization [facility] Address [address] [place] [address] Care Team Providers Care Fundraising Specialist Name Role Phone Shasha Freeman MD Primary Care Provider [phone] Source Comments [facility],non-owned Affiliates and Associated Physician Practices is amultiple site organization consisting of ambulatory clinics and hospital sitesin [place], [place], [place] and [place]. This disclosure is being madepursuant to the Care Everywhere program and may not contain all information available regarding this patient. 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 08/23/2021 Overview (08/23/2021): Yesenia put pt on [...] on file Legal Sex Female 5:39 AM DATA TRANSCRIBER Gender Identity Not on file Sexual Orientation Not on file Last Filed Vital Signs Vital Sign Reading Time Taken Comments Blood Pressure 104/66 07/22/2017 11:55 AM DATA TRANSCRIBER Pulse 87 07/22/2017 11:55 AM DATA TRANSCRIBER Temperature 37 C (98.6 F) 07/22/2017 11:55 AM DATA TRANSCRIBER Respiratory Rate 16 07/22/2017 11:55 AM DATA TRANSCRIBER Oxygen Saturation 98% 07/22/2017 11:55 AM DATA TRANSCRIBER Inhaled Oxygen Concentration - - Weight 74.8 kg (165 lb) 07/22/2017 11:55 AM DATA TRANSCRIBER Height 151.1 cm (4' 11.5) 07/22/2017 11:[address] Body Mass Index 32.77 07/22/2017 11:55 AM DATA TRANSCRIBER Plan of Treatment Health Maintenance Due Date [...] MEDICAID [employer] [facility] [facility] [place] Care Teams Fundraising Specialist Relationship Specialty Start Date End Date Shasha Freeman MD [facility] [address] PCP - General Family Medicine 06/19/14
[2025-06-28 11:13] LABS: Add Urine Microscopic? NO; Appearance Urine Clear (Clear); Glucose Urine UA Negative (Negative); Leukocyte Esterase Ur Negative LEU/UL (Negative); Nitrate Urine Negative (Negative); Specific Grav Ur 1.012 (1.001-1.035)
--- NOTE | 2025-06-28 13:07 | PM.IMHP ---
H&P: HPI History of Present Illness Date/Time: 06/28/25 13:07 Chief Complaint: pelvic pain , early preg Narrative: She presented to ED with complaints of spotting this am and increased cramping intermittent. Denies lightheadedness or dizziness. Denies lightheadedness or dizziness. She was seen in office on 06/24 as ER follow up from first trimester spotting. Her LMP 10 and has intermittent spotitng and cramping since. Today's hcg levels are plateauing. Ultrasound findings today probable hemorrhagic ovarian cyst 3.2cm, no IUP which is not consistent with low hcg. There is moderate fluid in pelvis. She was informed of possible diagnosis of hemorrhagic cyst versus ectopic versus threatened miscarriage and recommendation for admission for observation. Review of Systems Review of Systems: All systems reviewed & are unremarkable except as noted in HPI and below Cardiovascular: Cardiovascular: Reports no additional cardiovascular complaints, Denies chest pain and Denies dyspnea Respiratory: Respiratory: Reports no additional respiratory complaints and Denies dyspnea Gastrointestinal: Gastrointestinal: Reports abdominal pain, Denies change in bowel habits, Denies diarrhea, Denies nausea and Denies vomiting Integumentary/Breasts: Skin/Breast: Reports system reviewed and no additional complaints, except as docu Neurologic: Reports system reviewed and no additional complaints, except as documented PMF Past Medical History Medical History Attention deficit hyperactivity disorder Depression Anxiety Gastroesophageal reflux disease Patient denies significant medical history Surgical History Surgical History No history of previous surgery Family History Family History Grandparent Diabetes mellitus Mother Bronchitis Social History Social History Social History: Surrogate decision maker: Hannah Wheatley, mother. Code status: Full code. Years smoked: 5 Smoking status: Current every day smoker Tobacco type: e-cigarettes/vaping Alcohol intake: current Drinks per week: 1 Substance use: never Substance use type: does not use Lack of Transportation: No Lack of Food: Never True Current Housing: I Have Housing Concerned About Future Housing: No Difficulty Paying Gas/Electric Bills: No Difficulty Paying for Meds: No Currently Unemployed: No Education: High School Diploma/GED Difficulty w/ Childcare or Family Care: No Additional living arrangements comments: Currently living with her boyfriend in [place]. Additional occupation/education comments: Works at a [employer] Spiritual care concerns: No Meds Home Medications and Allergies Home Medications ?Medication ?Instructions ?Recorded ?Confirmed ?Type albuterol sulfate 90 mcg/actuation 2 puff inhalation QID PRN 07/20/21 06/28/25 Rx aerosol inhaler (ProAir HFA) shortness of breath or wheezing #6.7 grams Allergies Allergy/AdvReac Type Severity Reaction Status Date / Time diphenhydramine Allergy Mild Anaphylaxis Verified 06/28/25 14:23 codeine Allergy Hives Verified 06/28/25 14:23 Vital Signs Vital Signs - 24 hr 06/28/25 09:59 Temperature 98.1 F Pulse Rate 82 Respiratory Rate 16 Blood Pressure 105/58 L Pulse Oximetry 100 Oxygen Delivery Room Air Exam Const: General: no acute distress Orientation/consciousness: oriented to person and oriented to place HENMT: Head: normal to inspection Eyes: General: appearance normal, both eyes and all related structures Resp: Effort & Inspection: normal respiratory effort Auscultation: clear to auscultation bilaterally Cardio: Rate: regular rate Rhythm: regular rhythm GI: Inspection: normal to inspection GI Palp: No Rebound tenderness present Other: Abdomen soft, no guarding or rebound, nontender nondistended Neuro: General: oriented to person and oriented to place Extrem: General: normal to inspection Psych: Appearance: grossly normal H&P: Results Labs Labs: Short CBC 06/28/25 Range/Units 08:52 WBC 6.7 (4.5-10.0) K/mm3 Hgb 11.9 L (12.0-15.0) g/dL Hct 34.2 L (37.0-47.0) % Plt Count 263 (150-375) k/mm3 BMP 06/28/25 08:52 Sodium 137 Potassium 4.2 Chloride 104 Carbon Dioxide 25 BUN 11 Creatinine 0.68 L Glucose 96 Calcium 9.2 Liver Function 06/28/25 Range/Units 08:52 Total Bilirubin 0.3 (0.2-1.3) mg/dL AST 20 (14-36) U/L ALT 18 (6-35) U/L Alkaline Phosphatase 53 (38-126) U/L Albumin 4.5 (3.5-5.1) g/dL Urine 06/28/25 Range/Units 11:03 Urine Color Yellow (Yellow) Urine Appearance Clear (Clear) Urine pH 7.5 (5.0-9.0) Ur Specific Decker 1.012 (1.001-1.035) Urine Protein Negative (Negative) mg/dL Urine Glucose (UA) Negative (Negative) mg/dL Assessment and Plan Assessment and plan (1) , location unknown: Code(s): O36.80X0 - with inconclusive viability, not applicable or unspecified Status: Acute Assessment and Plan: Admit for observation. Hemodynamicly stable. Mild change in h/h. Monitor cbc or signs of hypovolemia repeat hcg in am She has been informed possible ectopic vs hemorrhagic cyst possible need for diagnostic laparoscopy and/or medication for ectopic tissue. (2) First trimester bleeding: Code(s): O20.9 - Hemorrhage in early , unspecified Status: Acute Assessment and Plan: Reviewed with her that this is not a normal due to the decreasing hcg levels, possible early failed versus ectopic . Will need to observe and monitor labs and symptoms and determine if possible need for laparoscopy/ dilation and curettage. She agrees with admission. (3) Hemorrhagic cyst of right ovary: Code(s): N83.201 - Unspecified ovarian cyst, right side Status: Acute
--- NOTE | 2025-06-28 13:22 | ED_ITS ---
HPI - Female Genitourinary General Chief complaint: Vaginal Bleeding Stated complaint: possible miscarriage Time Seen by Provider: 06/28/25 08:43 History of Present Illness HPI Narrative: Patient in early here today because for last week, patient has had intermittent vaginal bleeding, and the pain has gotten worse, so she came back in to be checked for possible ectopic or miscarriage. Related Data Home Medications ?Medication ?Instructions ?Recorded ?Confirmed ?Last Taken ?Type folic acid 1 mg tablet 2 mg PO BID 07/19/21 5 Unknown History vitamins no.144-folic 2 tablet PO DAILY 07/1906/24/25 Unknown History acid 400 mcg chewable tablet () Allergies Allergy/AdvReac Type Severity Reaction Status Date / Time diphenhydramine Allergy Mild Anaphylaxis Verified 06/23/25 13:23 codeine Allergy Hives Verified 06/23/25 13:23 Review of Systems 2 Review of Systems: All systems reviewed & are unremarkable except as noted in HPI and below PMFSH Past Medical History Medical History Attention deficit hyperactivity disorder Depression Anxiety Gastroesophageal reflux disease Patient denies significant medical history Surgical History Surgical History No history of previous surgery Family History Family History Grandparent Diabetes mellitus Mother Bronchitis Social History Social History Social History: Surrogate decision maker: Hannah Wheatley, mother. Code status: Full code. Years smoked: 5 Smoking status: Current every day smoker Tobacco type: e-cigarettes/vaping Alcohol intake: never Substance use: never Substance use type: does not use Additional living arrangements comments: Currently living with her boyfriend in [place]. Additional occupation/education comments: Works at a [employer]. Spiritual care concerns: No Exam 2 Narrative: EXAMINATION OF ORGAN SYSTEMS/BODY AREAS: Constitutional: Vital signs per nursing GENERAL:[No acute distress, non-toxic appearing.] HEAD: Normal with no signs of head trauma. EYES: EOMI, conjunctiva normal ENT: Hearing grossly intact LUNGS: Nonlabored breathing. HEART: [Regular rate and rhythm] ABD: [Soft], [nontender to palpation] EXT: Normal range of motion SKIN: [No rashes or lesions.] NEURO: [Alert and oriented x 3. No gross focal sensory or strength deficits.] PSYCH: Normal affect Course Vital Signs Vital signs: Vital Signs Temperature 98.1 F 06/28/25 09:59 Pulse Rate 82 06/28/25 09:59 Respiratory Rate 16 06/28/25 09:59 Blood Pressure 105/58 L 06/28/25 09:59 Pulse Oximetry 100 06/28/25 09:59 Oxygen Delivery Room Air 06/28/25 09:59 Temperature 98.1 F 06/28/25 09:59 Pulse Rate 82 06/28/25 09:59 Respiratory Rate 16 06/28/25 09:59 Blood Pressure 105/58 L 06/28/25 09:59 Pulse Oximetry 100 06/28/25 09:59 Oxygen Delivery Room Air 06/28/25 09:59 MDM - Female Genitourinary MDM Narrative Medical decision making narrative: Patient in early here today because for last week, patient has had intermittent vaginal bleeding, and the pain has gotten worse, so she came back in to be checked for possible ectopic or miscarriage. Today her hCG has gone up only little bit, her ultrasound is showing some or free fluid and her hemoglobin has dropped since her last count. Discussed this with her OBGYN was, in person to see the patient and discussed options with her, at this time they are planning for observation with repeat checks and possible OR tomorrow. Lab Data 06/28/25 08:52 06/28/25 08:52 Labs: Lab Results 06/28/25 06/28/25 Range/Units 08:52 11:03 WBC 6.7 (4.5-10.0) K/mm3 RBC 4.19 L (4.2-5.4) M/mm3 Hgb 11.9 L (12.0-15.0) g/dL Hct 34.2 L (37.0-47.0) % MCV 81.6 (80-100) fl MCH 28.4 (26-34) pg MCHC 34.8 (32-36) g/dl RDW 12.9 (11.5-14.5) % Plt Count 263 (150-375) k/mm3 MPV 8.5 (7.4-10.4) fl Immature Gran % (Auto) 0.4 (0-0.5) % Neut % (Auto) 57.0 (45.5-73.1) % Lymph % (Auto) 27.9 (18.3-44.2) % [place] % (Auto) 7.1 (2.6-8.5) % Eos % (Auto) 6.7 H (0-4.4) % Baso % (Auto) 0.9 (0.2-1.2) % Lymph # (Auto) 1.88 (0.9-3.2) K/mm3 [place] # (Auto) 0.5 (0.1-0.6) K/mm3 Eos # (Auto) 0.5 H (0-0.3) K/mm3 Baso # (Auto) 0.1 (0.0-0.1) K/mm3 Abs Immat Gran (auto) 0.03 (0.00-0.031) K/mm3 Absolute Neuts (auto) 3.8 (1.3-6.7) K/mm3 Absolute Nucleated RBC 0.000 (0.0-0.012) K/mm3 Nucleated RBC % 0.0 (0.0-0.2) % Sodium 137 (137-145) mmol/L Potassium 4.2 (3.4-5.0) mmol/L Chloride 104 (98-107) mmol/L Carbon Dioxide 25 (22-30) mmol/L Anion Gap 8 (4-12) mmol/L BUN 11 (7-17) mg/dL Creatinine 0.68 L (0.7-1.0) mg/dL Estim Creat Clear Calc Not Reportable Estimated GFR > 60 (59 - ) Glucose 96 (65-110) mg/dL Calcium 9.2 (8.4-10.2) mg/dL Total Bilirubin 0.3 (0.2-1.3) mg/dL AST 20 (14-36) U/L ALT 18 (6-35) U/L Alkaline Phosphatase 53 (38-126) U/L Total Protein 7.6 (6.3-8.2) g/dL Albumin 4.5 (3.5-5.1) g/dL Beta HCG, Quant 610.20 mIU/ML Urine Color Yellow (Yellow) Urine Appearance Clear (Clear) Urine pH 7.5 (5.0-9.0) Ur Specific [place] 1.012 (1.001-1.035) Urine Protein Negative (Negative) mg/dL Urine Glucose (UA) Negative (Negative) mg/dL Urine Ketones Negative (Negative) mg/dL Ur Blood (Man) Negative (Negative) Urine Nitrate Negative (Negative) Urine Bilirubin Negative (Negative) Urine Urobilinogen 0.2 (<2.0) mg/dL Leukocyte Esterase Rfl Negative (Negative) PARESH/UL Discharge Plan Discharge Clinical Impression: Encounter for assessment for suspected ectopic Patient Disposition: Still a Patient Condition: Serious Patient Language: Estonian Prescriptions: No Action folic acid 1 mg Tablet 2 mg PO BID 400 mcg Tablet,Chewable 2 tablet PO DAILY albuterol sulfate [ProAir HFA] 90 mcg/actuation HFA aerosol inhaler 2 puff inhalation QID PRN (Reason: shortness of breath or wheezing) Qty: 6.7 0RF Follow-up/Referrals: UNKNOWN,DOCTOR [Primary Care Provider]
--- NOTE | 2025-06-28 14:22 | ADMGEN ---
This patient, Stephanie Wheatley, was admitted to 2 Medical Room 240-01. Patient/family oriented to hospital policies and general routines including ID bracelet, bed and alarms, visiting hours, pain management, procedures, bathroom and other care routines, personal items, smoking policy, room service/diet, and visiting hours. Information on how to activate the Rapid Response Team has been discussed. Patient/Family are encouraged to report perceived risks to care and to ask questions if they do not understand what they are told or what they should do.
[2025-06-28 17:53] LABS: Hematocrit 33.6 % (37.0-47.0); Hemoglobin 11.5 g/dL (12.0-15.0)
[2025-06-28] MEDS: ACETAMINOPHEN 500 MG TABLET 1000 MG PO (20:53)
[2025-06-29] VITALS (13 sets, daily range): BP systolic 92–113; BP diastolic 40–75; PULSE 72–107; RESP 12–20; TEMP 36.3–37.3; O2SAT 99–100
[2025-06-29 04:35] LABS: Hematocrit 32.1 % (37.0-47.0); Hemoglobin 11.0 g/dL (12.0-15.0); Immature Granulocyte Percent A 0.3 % (0-0.5); Lymphocytes Absolute Auto 2.26 K/mm3 (0.9-3.2); Mean Corpuscular HGB Conc 34.3 g/dl (32-36); Mean Corpuscular Hemoglobin 28.2 pg (26-34); Mean Corpuscular Volume 82.3 fl (80-100); Nucleated Red Blood Cells Absolute Auto 0.000 K/mm3 (0.0-0.012); Nucleated Red Blood Cells Perc 0.0 % (0.0-0.2); Platelet Count Result 248 k/mm3 (150-375); Red Blood Count 3.90 M/mm3 (4.2-5.4); White Blood Count 7.1 K/mm3 (4.5-10.0)
[2025-06-29 05:13] LABS: Beta HCG Quantitative 521.14 mIU/ML
--- NOTE | 2025-06-29 08:57 | PM.GYNPNOP ---
IMMIGRATION SPECIALIST - A/P Assessment and plan (1) , location unknown: Code(s): O36.80X0 - with inconclusive viability, not applicable or unspecified Status: Acute Assessment and Plan: She was informed that her HCG level is continuing to plateau. Her hemoglobin and hematocrit slightly decreased. She is not having any hypovolemic symptoms. She is hemodynamically stable. Recommend diagnostic laparoscopy. She was informed of risk to include bleeding infection injury to other organs informed of risk of needing to remove affected fallopian tube and/or ovary, risk of laparotomy. Possible salpingostomy versus salpingectomy. Possible oophorectomy. Informed that sometimes the ectopic tissue was not visualized, if it is not and there was minimal tissue obtained with dilation and curettage then recommendation for methotrexate. her questions were answered. She agrees to diagnostic laparoscopy removal ectopic tissue if present removal of ovarian cyst if present and curettage. (2) Hemorrhagic cyst of right ovary: Code(s): N83.201 - Unspecified ovarian cyst, right side Status: Acute Assessment and Plan: Possible versus ectopic tissue plan per above. (3) Encounter for assessment for suspected ectopic : Code(s): Z32.00 - Encounter for test, result unknown Status: Acute Postoperative Procedures: Procedures Operation Date: 06/29/25 12:15 <No data on this case meets the specified criteria> Time Spent With Patient Time: Total time spent is greater than 50% in coordination of care (as documented) at patient's floor/unit and/or counseling patient: Time with patient: less than 15 minutes IMMIGRATION SPECIALIST- PN:Subj Post-Op Subjective Date/time seen: 06/29/25 08:57 Interval history: She denies pain. Denies lightheadedness or dizziness. Spotting. Exam Const: General: comfortable and no acute distress Eyes: General: appearance normal, both eyes and all related structures Resp: Effort & Inspection: normal respiratory effort GI: Other: soft nontender nondistended Extrem: General: no calf tenderness IMMIGRATION SPECIALIST - PN: Obj Data Vital Signs Vital Signs: Vital Signs - 24 hr 06/28/25 09:59 06/28/25 14:08 06/28/25 14:10 Temperature 98.1 F 98.0 F 98.0 F Pulse Rate 82 89 89 Respiratory Rate 16 18 18 Blood Pressure 105/58 L 105/64 105/64 Pulse Oximetry 100 100 100 Oxygen Delivery Room Air 06/28/25 14:17 06/28/25 16:00 06/28/25 19:57 Temperature 98.3 F 97.9 F Pulse Rate 80 92 Respiratory Rate 19 20 Blood Pressure 101/61 98/56 L Pulse Oximetry 100 99 Oxygen Delivery Room Air 06/28/25 20:00 06/28/25 20:40 06/28/25 23:34 Temperature 98.1 F Pulse Rate 95 Respiratory Rate 20 Blood Pressure 92/49 L Pulse Oximetry 99 100 Oxygen Delivery Room Air Room Air 06/29/25 04:00 Temperature 98.1 F Pulse Rate 77 Respiratory Rate 20 Blood Pressure 92/48 L Pulse Oximetry 100 Oxygen Delivery Intake/Output Intake/Output: Intake & Output 06/26/25 06/27/25 06/28/25 06/29/25 22:59 23:59 23:59 23:59 Intake Total 790 Balance 790 Meds/Results Medications: Active Medications Generic Name Dose Route Start Last Admin Trade Name Freq PRN Reason Stop Dose Admin Acetaminophen 1,000 mg 06/28/25 13:11 06/28/25 20:53 Acetaminophen 500 Mg Tablet PO 1,000 mg Q6H PRN Administration Abdominal Cramping Albuterol 2 puff 06/28/25 16:30 Albuterol Sulfate (*Sp) Aerosol 1 Puff INHALATION QIDRT PRN Shortness Of Breath Or Wheezing Radiology Results: ITS Impressions Obstetrics Ultrasound 06/28/25 09:59 IMPRESSION: 1. No intrauterine gestation is seen. No positive evidence for ectopic . Ectopic is not excluded from this study. This could also relate to a fairly early intrauterine or blighted ovum/completed Ab. 2. Free pelvic fluid, somewhat increased from the prior study. 3. Probable hemorrhagic right ovarian cyst. Labs 06/29/25 04:31 06/28/25 08:52 Labs: Laboratory Results - last 24 hr 06/28/25 06/28/25 06/28/25 08:52 11:03 16:57 WBC 6.7 RBC 4.19 L Hgb 11.9 L 11.5 L Hct 34.2 L 33.6 L MCV 81.6 MCH 28.4 MCHC 34.8 RDW 12.9 Plt Count 263 MPV 8.5 Immature Gran % (Auto) 0.4 Neut % (Auto) 57.0 Lymph % (Auto) 27.9 [place] % (Auto) 7.1 Eos % (Auto) 6.7 H Baso % (Auto) 0.9 Lymph # (Auto) 1.88 [place] # (Auto) 0.5 Eos # (Auto) 0.5 H Baso # (Auto) 0.1 Abs Immat Gran (auto) 0.03 Absolute Neuts (auto) 3.8 Absolute Nucleated RBC 0.000 Nucleated RBC % 0.0 Sodium 137 Potassium 4.2 Chloride 104 Carbon Dioxide 25 Anion Gap 8 BUN 11 Creatinine 0.68 L Estim Creat Clear Calc Not Reportable Estimated GFR > 60 Glucose 96 Calcium 9.2 Total Bilirubin 0.3 AST 20 ALT 18 Alkaline Phosphatase 53 Total Protein 7.6 Albumin 4.5 Beta HCG, Quant 610.20 Urine Color Yellow Urine Appearance Clear Urine pH 7.5 Ur Specific [place] 1.012 Urine Protein Negative Urine Glucose (UA) Negative Urine Ketones Negative Ur Blood (Man) Negative Urine Nitrate Negative Urine Bilirubin Negative Urine Urobilinogen 0.2 Leukocyte Esterase Rfl Negative 06/29/25 04:31 WBC 7.1 RBC 3.90 L Hgb 11.0 L Hct 32.1 L MCV 82.3 MCH 28.2 MCHC 34.3 RDW 13.0 Plt Count 248 MPV 8.3 Immature Gran % (Auto) 0.3 Neut % (Auto) 51.8 Lymph % (Auto) 32.0 [place] % (Auto) 7.6 Eos % (Auto) 7.5 H Baso % (Auto) 0.8 Lymph # (Auto) 2.26 [place] # (Auto) 0.5 Eos # (Auto) 0.5 H Baso # (Auto) 0.1 Abs Immat Gran (auto) 0.02 Absolute Neuts (auto) 3.7 Absolute Nucleated RBC 0.000 Nucleated RBC % 0.0 Sodium Potassium Chloride Carbon Dioxide Anion Gap BUN Creatinine Estim Creat Clear Calc Estimated GFR Glucose Calcium Total Bilirubin AST ALT Alkaline Phosphatase Total Protein Albumin Beta HCG, Quant 521.14 Urine Color Urine Appearance Urine pH Ur Specific [place] Urine Protein Urine Glucose (UA) Urine Ketones Ur Blood (Man) Urine Nitrate Urine Bilirubin Urine Urobilinogen Leukocyte Esterase Rfl
--- NOTE | 2025-06-29 11:38 | WPDHPUPDATE1 ---
History and Physical Update Update Date/Time: 06/29/25 11:38 History and Physical has been reviewed, including an updated exam of the patient. There are NO changes in the patient's condition. Risks, benefits, and alternatives have been discussed and questions answered. Patient agrees to proceed with procedure.
[2025-06-29] MEDS: DOXYCYCLINE IV 100 MG in SODIUM CHLORIDE 0.9% IV 100 ML IVPB (11:48)
--- NOTE | 2025-06-29 13:22 | S_PTH ---
PATIENT: Stephanie Wheatley LOC: [id number] U#:[id number] AGE/SX: 24/F ROOM: 240 RE06/28/[address]: Puneet Francisco MD : 2000 BED: 01 DIS: 06/29/2025 SPEC #: [id number] RECD: 06/29/25 13:48 STATUS: MEHDI REMoo #: [id number] LESLEY: 06/29/25 13:[address]: Puneet Francisco DEPT: [facility] Surgical RECD BY: Genny Starr ENTERED: 06/29/25 13:49 SP TYPE: Surgical OTHR DR: UNKNOWN,DOCTOR Tissues: A - Fallopian Tube Single B - Cyst C - Endometrial Curettings Procedures: Gross and Microscopic Level 2 Hematoxylin and Eosin Stain Gross and Microscopic Level 4
[2025-06-29] MEDS: LACTATED RINGERS 1,000 ML 30 ML IV CONT ×2 (13:38→13:39)
[2025-06-29] MEDS: fentaNYL CITRATE INJ (*CRX) 100 MCG/2 ML VIAL 25 MCG IV PUSH ×2 (14:10→14:12)
--- NOTE | 2025-06-29 14:43 | W.PM.PROC2 ---
Procedure Note - Detailed Date of Procedure 06/29/25 Pre-op Diagnosis r/o ectopic Post-op Diagnosis Other ( findings consistent with enlarged distal portion fallopian tube consistent with left ectopic , large multiloculated hemorrhagic right ovarian cyst) Procedure Performed operative laparoscopy with left salpingectomy, right ovarian cystectomy and sharp endometrial curettage Surgeon Puneet Francisco MD Anesthesia General Indications abnormally rising HCG levels mildly decreasing hemoglobin history of pain and vaginal bleeding in Findings approximately 100 cc of blood in the pelvis enlarged right ovary with hemorrhagic right ovarian cyst the right fallopian tube was normal appearing the left fallopian tube had enlargement distally consistent with an ectopic Description of Procedure After informed consent was obtained patient was taken to the operating room and general endotracheal anesthesia was administered. She was placed in low lithotomy need prep prepped sterile fashion. Attention was turned to the vagina speculum inserted single-tooth tenaculum placed on anterior lip of the cervix. [place] uterine manipulator placed into the cervical canal. The speculum was removed. Attention was then turned to the abdomen. At the umbilicus an incision was made horizontally. Verries needle was inserted, a pneumoperitoneum of 15 mm per mercury was obtained. The 5 mm port was inserted under laparoscopic visualization. Patient was placed in Trendelenburg position. Attention was turned to the left side of the abdomen and a 5 mm port was inserted under laparoscopic visualization. The pelvic organs were visualized. Attention was turned to the right side of the abdomen and another 5 mm port was inserted under laparoscopic visualization. the pelvis was inspected with findings per above. The pelvis was irrigated and blood and clot was removed. There appeared to be significant dilation of partial distal half of the left fallopian tube. Findings consistent with possible ectopic. The right fallopian tube appeared normal nondilated. There was large amount of clot at the end of the left fallopian tube. There was the large bilobed cyst on the right ovary which did appear to be filled with blood. This was approximately 4 cm. An incision was made over the distended portion of the distal left fallopian tube with the J-hook on the LigaSure. What appeared to be ectopic tissue was removed in multiple pieces. The fallopian was friable and there was bleeding which necessitated removing the fallopian tube to the mid tube. A size 10/11 port was inserted at the right port site. An endocatch bag was inserted and the tube was placed in bag and removed through incision. Attention was then turned to the right ovary which the cyst had blood in it. An incision was made at the cyst and blood fluid was removed. Area irrigated. The cyst wall was removed. Hemostasis obtained with cautery. Hemostasis was noted. The pneumoperitoneum was released. Ports were removed. 0 Vicryl was used to approximate the deeper tissue at the left port. Attention was turned to the vagina and a curettage was performed minimal tissue obtained. All skin incisions were closed with 4-0 Vicryl. Patient was taken out of Trendelenburg position the pneumoperitoneum was released and the skin incisions were closed in a subcuticular fashion with 4 O Vicryl. Estimated Blood Loss 100 Drains No Packing No Pathology Yes (left fallopian tube, pieces of ectopic tissue and clot. Right ovarian cyst wall.) Complications No immediate complications Condition Stable Disposition Floor AM Billing Surgery - Charge Forward: Surgery Billing
--- NOTE | 2025-06-29 16:44 | P.DS_ITS ---
DS: Admitting Diagnosis Discharge Date 06/29/25 Admitting Diagnosis Rule out ectopic DS: Discharge Diagnosis Discharge Diagnosis (1) Ectopic : Code(s): O00.90 - Unspecified ectopic without intrauterine Status: Acute (2) Hemorrhagic ovarian cyst: Code(s): N83.209 - Unspecified ovarian cyst, unspecified side Status: Acute DS: Summary Hospital Course Reason for hospitalization: rule out ectopic Hospital Course: She is admitted to the hospital from the emergency department due to plateauing HCG levels and intermittent abdominal pain and mildly decreasing hemoglobin hematocrit levels. She was observed and was hemodynamically stable her hCG level continued to plateau and she was recommended for laparoscopy for of unknown location, suspected ectopic . She underwent a laparoscopy and was found to have a right hemorrhagic ovarian cyst and also f indings consistent with a left ectopic and hemoperitoneum mild. Postoperatively she did well. Had adequate pain control and was tolerating regular food. She was discharged to home in the evening of 06/29/2025. She was informed of discharge precautions. And follow-up instructions. Status at Discharge Functional status at discharge: independent ambulation Time Spent with Patient Time attestation: Total time spent providing and/or coordinating discharge services: Exam Const: General: no acute distress Eyes: General: appearance normal, both eyes and all related structures Resp: Effort & Inspection: normal respiratory effort GI: Other: Abdomen soft nontender nondistended incisions intact Neuro: General: patient oriented x3 Extrem: General: normal to inspection and no calf tenderness DS: Data Data Completed and Pending Pending studies at discharge: Pending at discharge 06/29/25 13:22 Surgical [PTH] Routine Surgical [PTH] Routine Surgical [PTH] Routine Labs on day of discharge: Labs from last 24 hours 06/29/25 06/28/25 04:31 16:57 WBC 7.1 RBC 3.90 L Hgb 11.0 L 11.5 L Hct 32.1 L 33.6 L MCV 82.3 MCH 28.2 MCHC 34.3 RDW 13.0 Plt Count 248 MPV 8.3 Immature Gran % (Auto) 0.3 Neut % (Auto) 51.8 Lymph % (Auto) 32.0 [place] % (Auto) 7.6 Eos % (Auto) 7.5 H Baso % (Auto) 0.8 Lymph # (Auto) 2.26 [place] # (Auto) 0.5 Eos # (Auto) 0.5 H Baso # (Auto) 0.1 Abs Immat Gran (auto) 0.02 Absolute Neuts (auto) 3.7 Absolute Nucleated RBC 0.000 Nucleated RBC % 0.0 Beta HCG, Quant 521.14 Discharge Plan Discharge Attending physician on discharge: Puneet Francisco Consulting providers: Koki Guzman Discharging Clinician: Puneet Francisco Anticipated Discharge Date/Time: 06/29/25 17:45 Patient Disposition: Home Activity: may shower, no straining, no driving and pelvic rest Diet: regular Discharge Instructions: May take Tylenol over the counter, follow directions on bottle. May take over the counter Ibuprofen. Follow directions on bottle. Call for persistent nausea or vomiting that doesn't resolve. Call for pain that does not resolve with medication. Get repeat hcg lab on FriJul 01 at [facility]. Make follow up appointment for next week. No working until after your follow up office visit. No lifting more than 10 pounds. Patient Instructions: Antibiotic Form Patient Language: Portuguese Stand Alone Forms: General Discharge Information Follow-up/Referrals: Puneet Francisco MD [Physician, PROCESS CONTROL OPERATOR] - Call for Appointment Referral Note: Follow up with me in one week Need to get hcg lab drawn on Friday at [facility] Discharge Medications: New oxycodone 5 mg Tablet 5 mg PO Q4H PRN (Reason: Pain Rated 7-10) Qty: 10 0RF Continued albuterol sulfate [ProAir HFA] 90 mcg/actuation HFA aerosol inhaler 2 puff inhalation QID PRN (Reason: shortness of breath or wheezing) Qty: 6.7 0RF Date of admission: 06/28/25 13:12 Primary Care Provider: UNKNOWN,DOCTOR Admitting Provider: Puneet Francisco Attending physician on admission: Puneet Francisco Condition: Stable
--- NOTE | 2025-06-30 08:53 | WPDANESEPPF ---
Anes - Initial Pre Proc Eval Procedure: Operation Date: 06/29/25 12:15 Proposed Procedures p Diagnostic Laparoscopy, Possible Right Salpingo Oophorectomy, Dilatation and Curettage(Right) - Puneet Francisco MD Date/Time: 06/30/25 08:53 Surgeon: Puneet Francisco MD Pre Op Diagnosis: r/o ectopic Patient Data Age: 24 Gender: F Height: 1.5 m Weight: 76 kg Last Vital Signs Temp 37.0 C 06/29/25 17:00 Pulse 107 H 06/29/25 17:00 Resp 18 06/29/25 17:00 BP 113/65 06/29/25 17:00 Pulse Ox 99 06/29/25 17:00 O2 Del Method Room Air 06/29/25 14:51 O2 Flow Rate 10 06/29/25 14:05 Allergies Allergy/AdvReac Type Severity Reaction Status Date / Time diphenhydramine Allergy Mild Anaphylaxis Verified 06/29/25 10:25 codeine Allergy Hives Verified 06/29/25 10:25 Home Medications ?Medication ?Instructions ?Recorded ?Confirmed ?Type albuterol sulfate 90 mcg/actuation 2 puff inhalation QID PRN 07/20/21 06/28/25 Rx aerosol inhaler (ProAir HFA) shortness of breath or wheezing #6.7 grams oxycodone 5 mg tablet 5 mg PO Q4H PRN Pain Rated 7-10 06/29/25 Rx #10 tabs Patient hx anesthesia problems: none Family hx anesthesia problems: none Results Review: All pre-operative results and documents have been reviewed as part of the pre-operative evaluation. [facility] Past Medical History Medical History Attention deficit hyperactivity disorder Depression Anxiety Gastroesophageal reflux disease Patient denies significant medical history Surgical History Surgical History No history of previous surgery Family History Family History Grandparent Diabetes mellitus Mother Bronchitis Social History Social History Social History: Surrogate decision maker: Hannah Wheatley, mother. Code status: Full code. Years smoked: 5 Tobacco type: e-cigarettes/vaping Alcohol intake: current Drinks per week: 1 Substance use: never Substance use type: does not use Lack of Transportation: No Lack of Food: Never True Current Housing: I Have Housing Concerned About Future Housing: No Difficulty Paying Gas/Electric Bills: No Difficulty Paying for Meds: No Currently Unemployed: No Education: High School Diploma/GED Difficulty w/ Childcare or Family Care: No Additional living arrangements comments: Currently living with her boyfriend in [place]. Additional occupation/education comments: Works at [employer] care concerns: No Anes - Eval Final PreProcedure Day of Procedure 06/30/25 08:53 Patient weight: obese Heart: regular rate and rhythm Lungs: clear to auscultation Airway: Mallampati scale class II Neurological: alert and oriented Last oral intake: >/= 8 hours ASA classification: II Emergent: no Anesthetic plan: proceed Anesthesia type and monitoring: general ETT and standard monitoring Results Review: All pre-operative results and documents have been reviewed as part of the pre-operative evaluation. Informed Consent: The patient's anesthetic plan and its attendant risks and benefits were discussed with the patient/family/POA. Questions were solicited and answers provided to the satisfaction of the patient/family/POA.
== END 2025-06-29 18:17 | disposition home or self-care (01) ==
LOC: ANHED 13:29 → ANH2MED 13:43
PROVIDERS: Admitting Provider Obstetrics & Gynecology; Emergency Provider Emergency Medicine; Visit Provider Obstetrics & Gynecology
PROC: (CPT 49320; principal; 2025-06-29 12:15)
DX: O00.90 Unspecified ectopic pregnancy without intrauterine pregnancy (principal); N83.201 Unspecified ovarian cyst, right side
CPT/HCPCS: 59151; 58662; 36415; 76801; 76817; 80053; 81003; 84702; 85014; 85018; 85025; 88302; 88305; 99285; A9270; G0378; J1100; J1171; J2003; J2250; J2405; J2704; J3010; J7030; J7120

== ENCOUNTER 2025-07-01 10:36 | Outpatient (CLI) | payer SELFPAY ==
--- OUTSIDE RECORDS SUMMARY | 2025-07-01 11:25 | XMS_ITS | Clinical Summary ---
Author Organization [facility] [address] [place] [address] Care Team Providers Care Document Control Coordinator Name Role Phone Marie Villalba MD Primary [...] Comments Blood Pressure 114/72 09/01/2023 11:23 AM OFFC SPEC Pulse 96 09/01/2023 11:23 AM OFFC SPEC Temperature - - Respiratory Rate 18 09/01/2023 11:23 AM OFFC SPEC Oxygen Saturation 98% 09/01/2023 11:23 AM OFFC SPEC Inhaled Oxygen Concentration - - Weight 76.2 kg (168 lb) 09/01/2023 11:23 AM OFFC SPEC Height 149.9 cm (4' 11) 09/01/2023 11:23 AM OFFC SPEC Body Mass Index 33.93 09/01/2023 11:23 AM OFFC SPEC Plan of Treatment Health Maintenance Due Date [...] 07/14/2000, 02/28/2000, Additional history exists Insurance [facility] AETNA BETTER [facility] Care Teams Document Control Coordinator Relationship Specialty Start Date End Date Marie Villalba MD [address] [address] [address] [place], [place] [phone] PCP - General Family Medicine 08/29/23
--- OUTSIDE RECORDS SUMMARY | 2025-07-01 11:25 | XMS_ITS | Clinical Summary ---
Author Organization [facility] Address [address] [place] [address] Care Team Providers Care Arcgis Developer Name Role Phone Shasha Freeman MD Primary Care Provider [phone] Source Comments [facility],non-owned Affiliates and Associated Physician Practices is amultiple site organization consisting of ambulatory clinics and hospital sitesin [place], [place], [place] and [place]. This disclosure is being madepursuant to the Care Everywhere program and may not contain all information available regarding this patient. 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 Overview (08/23/2021): Yesenia put pt on [...] on file Legal Sex Female 5:39 AM CLINICAL ASSOCIATE Gender Identity Not on file Sexual Orientation Not on file Last Filed Vital Signs Vital Sign Reading Time Taken Comments Blood Pressure 104/66 07/22/2017 11:55 AM CLINICAL ASSOCIATE Pulse 87 07/22/2017 11:55 AM CLINICAL ASSOCIATE Temperature 37 C (98.6 F) 07/22/2017 11:55 AM CLINICAL ASSOCIATE Respiratory Rate 16 07/22/2017 11:55 AM CLINICAL ASSOCIATE Oxygen Saturation 98% 07/22/2017 11:55 AM CLINICAL ASSOCIATE Inhaled Oxygen Concentration - - Weight 74.8 kg (165 lb) 07/22/2017 11:55 AM CLINICAL ASSOCIATE Height 151.1 cm (4' 11.5) 07/22/2017 11:[address] Body Mass Index 32.77 07/22/2017 11:55 AM CLINICAL ASSOCIATE Plan of Treatment Health Maintenance Due Date [...] MEDICAID AETNA BETTER [facility] [place] Care Teams Arcgis Developer Relationship Specialty Start Date End Date Shasha Freeman MD [facility] [place] [id number] PCP - General Family Medicine 06/19/14
--- OUTSIDE RECORDS SUMMARY | 2025-07-01 11:25 | XMS_ITS | Encounter Summary ---
Author Organization [facility] Address [address] [place] [address] Care Team Providers Care Bean Picker Machine Operator Name Role Phone eKshavIvan cummings Ursula FLEMING Primary Care Provider [phone] Encounter Details Date Type Department Care Team (Late st Contact Info) Description 12/14/2021 Hospital Follow-up Call [facility] [place], [place] [phone] Dalia Pugh, RN Social History Tobacco Use [...] 12/09/2021 How often do you attend [facility] or buddhist services? Never 12/09/2021 Do you belong to any clubs o r organizations such as evangelical groups, unions, fraternal or athletic groups, or [...] and heating? Not hard at all 12/09/2021 [facility] - Occupational [...] place to sleep or slept in a residential (including now)? No 12/09/2021 Depression Answer Date [...] Status No 12/09/2021 10:56 AM INDERT Bambi Sinegr RN Active documented as of this encounter [...] on filedocumented in this encounter Care Teams Bean Picker Machine Operator Relationship Specialty Start Date End Date Ivan Cortes, [place] [address] PCP - General Nurse Practitioner Family 11/15/21 documented as of this encounter
--- OUTSIDE RECORDS SUMMARY | 2025-07-01 11:25 | XMS_ITS | Clinical Summary ---
Author Organization [facility] Address [address] [place] [address] Care Team Providers Care Cat Hooker Name Role Phone Unavailable Primary Care Provider Unavailabl e Social History Tobacco Use Types Packs/Day Years Used Date Smoking Tobacco: Never Assessed Comments Unknown Sex and Gender Information Value Date Recorded Sex Assigned at Not on file Legal Sex Female 12:16 PM CASEWORKER INTAKE Gender Identity Not on file Sexual Orientation [...]
--- OUTSIDE RECORDS SUMMARY | 2025-07-01 11:25 | XMS_ITS | Clinical Summary ---
Author Organization [facility] Address [address] [place] [address] Care Team Providers Care Silk Examiner Name Role Phone KeshavIvan cummings Ursula [facility] Primary Care Provider Allergies Active Allergy Reactions [...] How often do you attend chur or confucianist services? Never 12/09/2021 Do you belong to any clubs o r organizations such as mosque groups, unions, fraternal or athletic groups, or [...] and heating? Not hard at all 12/09/2021 [facility] [place] [facility] Occupat ional [facility] - Occupational Stress [...] place to sleep or slept in a [facility] (including now)? No 12/09/2021 Depression Answer Date [...] 10:42 AM 12/12/2021 4:46 PM Care Teams Silk Examiner Relationship Specialty Start Date End Date Ivan [place] [address] PCP - General Nurse Practitioner Family 11/15/21
[2025-07-01 11:56] LABS: Beta HCG Quantitative 86.73 mIU/ML
== END 2025-07-01 10:37 | disposition home or self-care (01) ==
LOC: ANHLAB 10:44
PROVIDERS: Visit Provider Nurse Practitioner Obstetrics & Gynecology
DX: O00.90 Unspecified ectopic pregnancy without intrauterine pregnancy (principal)
CPT/HCPCS: 36415; 84702

== ENCOUNTER 2025-07-12 09:13 | Outpatient (CLI) | payer SELFPAY ==
[2025-07-12 12:27] LABS: Beta HCG Quantitative < 2.39 mIU/ML
== END 2025-07-12 09:14 | disposition home or self-care (01) ==
PROVIDERS: Visit Provider Obstetrics & Gynecology
DX: O00.90 Unspecified ectopic pregnancy without intrauterine pregnancy (principal); Z3A.00 Weeks of gestation of pregnancy not specified
CPT/HCPCS: 36415; 84702